=== PATIENT | female | born 1945 | race Caucasian/White ===

== ENCOUNTER 2017-03-06 08:32 | Day surgery (SDC) | payer MEDICARE, OTHER, SELFPAY ==
[2017-03-01 11:19] VITALS: BMI 36.0
[2017-03-06] VITALS (12 sets, daily range): BP systolic 117–184; BP diastolic 68–87; PULSE 67–88; RESP 11–18; TEMP 36.5–36.7; O2SAT 90–99; BMI 36.0
[2017-03-06 09:34] LABS: POC Glucose,Bedside 104 mg/dL
--- NOTE | 2017-03-06 10:47 | HMH.SCOPE ---
- Procedure: Date: 03/06/17 Patient Date of :: 1945 Procedure Performed:: Colonoscopy with cold snare polypectomy Equipment: Olympus 180 variable stiffness pediatric colonoscope Indications:: Mrs. Mccarthy is a 72-year-old female who is here for screening colonoscopy. Her last colonoscopy was more than 10 years ago at [facility]. The patient does have some occasional hemorrhoidal bleeding. She reports no abdominal pain, weight loss, change in her bowel habits or rectal bleeding. She reports no family history of colon cancer. Performing Provider:: Steve Davies MD Referring Provider:: Terrance Villanueva MD Sedation:: Fentanyl 100 mg IV/ Versed 5 mg IV Procedure:: Colonoscopy with cold snare polypectomy Findings:: Findings: On digital rectal examination there was normal rectal tone. There were no external hemorrhoids. The colonoscope was introduced through the anal canal to the rectum and advanced to the cecum. The ileocecal valve and appendiceal orifice were identified. The scope was advanced a short distance into the ileum which appeared grossly normal. The scope was then withdrawn into the colon. There were 7 colon polyps identified in the ileocecal valve ?1, descending ?3 and rectum ?3. These ranged in size from 4-7 mm and were all removed via cold snare polypectomy. The remaining cecum, ascending, transverse, descending, sigmoid and rectum were grossly normal. There were no other mucosal abnormalities identified. Upon retroflexion within the rectum there were grade 1 internal hemorrhoids. Impression: 1. Diminutive colonic polyps ?7 2. Grade 1 internal hemorrhoids Recommendations:: I will follow up the polyp pathology and recommend repeat colonoscopy again in 3 years based upon the polyp histology. I would encourage fiber supplementation on a long-term daily maintenance basis. Complications:: None Estimated blood obtained (mL): 0
== END 2017-03-06 11:45 | disposition home or self-care (01) ==
LOC: OUTP 08:37
PROVIDERS: PCP Internal Medicine; Visit Provider Internal Medicine Gastroenterology
PROC: 0DJD8ZZ Inspection of Lower Intestinal Tract, Via Natural or Artificial Opening Endoscopic (ICD-10-PCS; CPT 45378; principal; 2017-03-06 10:00)
DX: Z12.11 Encounter for screening for malignant neoplasm of colon (principal); D12.0 Benign neoplasm of cecum; D12.4 Benign neoplasm of descending colon; K63.5 Polyp of colon; Z79.899 Other long term (current) drug therapy
CPT/HCPCS: 45380; 82962; 88305; 99152; 99153

== ENCOUNTER → 2018-06-01 13:31 | Outpatient (CLI) | payer MEDICARE, OTHER, SELFPAY ==
--- NOTE | 2018-06-01 13:40 | XR_ITS ---
XR knee RT 4V HISTORY: Surgery 2014 pain past 3 months ITS.REASON: AP, Lateral, [place], [place] weightbearing ORDERING PHYSICIAN: Letha Thomas MD PATIENT AGE: 73 years Technique: Weightbearing AP, lateral and [place] views were performed as well as oblique. COMPARISON: 1 none FINDINGS: Right TKA. Components appear to be in good position. Well seated. No fracture or loosening. Normal relationships. . No significant joint effusion. Upper normal fluid suprapatella bursa on lateral view Minimal old corticated fragment is seen at themedial margin the femoral condyle,/ at medial margin of the femoral prosthesis at the likely postsurgical feature. No joint effusion. IMPRESSION Right TKA in place and appears satisfactory at the right knee
== END ==
PROVIDERS: PCP Internal Medicine; Visit Provider Orthopaedic Surgery
DX: M25.561 Pain in right knee (principal)
CPT/HCPCS: 73564

== ENCOUNTER → 2018-06-18 08:07 | Outpatient (CLI) | payer MEDICARE, OTHER, SELFPAY ==
--- NOTE | 2018-06-18 08:18 | XR_ITS ---
XR ankle wt bearing RT min 3V, XR foot wt bearing LT 3V, XR foot wt bearing RT 3V, XR ankle wt bearing LT min 3V Ordering Physician: Shaunna Singh DPM Patient Age: 73 years: Female HISTORY: ITS.REASON: painbilateral heel pain of right ankle and foot surgery years ago TECHNIQUE: Right ankle: 3 view weightbearing Right foot: 3 view weightbearing Left ankle: 3 view weightbearing Left foot: 3 view weightbearing COMPARISON : Right ankle 7 and 811 RIGHT ANKLE: 3 VIEW weightbearing ORIF of lateral malleolar fracture. Metallic plate applied laterally to the fibula and secured by multiple screws. I believe up to 9 screws here 6 small screws are seen distally at the lateral malleolus with 3 screws seen at the distal fibula shaft. Good alignment with good osseous healing at this prior fracture of the distal fibula. Satisfactory relationships at the ankle mortise. There is a corticated fracture fragment. The tip of the medial malleolus measuring at least 8 mm size, most compatible with prior injury as seen on 2010 right ankle fracture dislocation the dome of the talus and relationships ankle mortise satisfactory. ========= RIGHT FOOT 3 VIEWS weightbearing Long threaded screw and fifth metatarsal. This enters at approximately and passes the length of the fifth metatarsal. Other than healing at the previous proximal metatarsal fracture, initially seen on the August 2010 x-ray as well. The remainder of the right foot appears intact. Joint spaces well-maintained. Only suggestion of some minor early degenerative changes at first MTP joint. With slight hypertrophic changes about its margin plantar calcaneal spur measuring 9 mm length. Minimal plantar arch. IMPRESSION... RIGHT ANKLE & FOOT . 1... ORIF distal fibular fracture. Good position at the healed fracture. Ankle mortise intact. 2..... Longitudinal screw at right fifth metatarsal provides fixation to old proximal metatarsal fracture 3. generous nearly 9 mm plantar calcaneal spur 4. Early arthritic changes first MTP joint. 1 .========= LEFT ANKLE: 3 VIEW weightbearing Ankle mortise is intact. However on final review there is note mild sclerotic changes towards the anterior aspect ankle joint on lateral view reflecting mild degenerative change There is a small osseous prominence or exostosis from the lateral margin of the distal fibula at lateral malleolus. There is mild soft tissue swelling overlying this area. Ankle mortise and dome of talus intact. Medial malleolus and posterior malleolus intact. Subtalar joint unremarkable Both right left leg demonstrate stippled soft tissue calcifications in the subcutaneous region. Unlikely superficial venous calcifications or possibly from chronic superficial venous insufficiency. ======== LEFT FOOT: 3 VIEW weightbearing The left foot is intact with no fracture. Normal relationships. Joint spaces well-maintained. 9 mm length calcaneal spur.. Moderate accessory ossicle along the lateral navicular, os navicularis... Question some early degenerative changes at the cuboid-fourth metatarsal articulation as well as first tarsometatarsal metatarsal joint. IMPRESSION...: LEFT FOOT & ANKLE... 1. Left Foot--plantar calcaneal spur measuring up to 9 mm length seen at left & right foot. 2... Left foot otherwise intact with only suggestion scant degenerative changes at4th & first tarsal metatarsal joint. 3. Left Ankle-. Perhaps some mild degenerative changes anterior aspect of ankle joint on lateral view. ... Also note minor focal osseous prominence of lateral tip of lateral malleolus.
== END ==
PROVIDERS: Visit Provider Podiatrist
DX: M79.672 Pain in left foot (principal); M79.671 Pain in right foot; M25.572 Pain in left ankle and joints of left foot; M25.571 Pain in right ankle and joints of right foot
CPT/HCPCS: 73610; 73630

== ENCOUNTER 2018-07-25 12:50 | Outpatient (RCR) | payer MEDICARE, OTHER, SELFPAY | END 2019-03-21 14:03 | disposition home or self-care (01) | LOC: PT 12:50 | PROVIDERS: Visit Provider Podiatrist | DX: M72.2 Plantar fascial fibromatosis (principal) ==

== ENCOUNTER 2020-02-19 13:00 | Outpatient (RCR) | payer MEDICARE, OTHER, SELFPAY | END 2020-03-05 10:24 | disposition home or self-care (01) | LOC: PT.CARL 13:00 | PROVIDERS: Visit Provider Orthopaedic Surgery | DX: M17.12 Unilateral primary osteoarthritis, left knee (principal) | CPT/HCPCS: 97010; 97014; 97110; 97112; 97163; G0283 ==

== ENCOUNTER 2023-03-03 15:44 | Outpatient (CLI) | payer MEDICARE, OTHER, SELFPAY ==
--- NOTE | 2023-03-03 07:12 | MR_ITS ---
FINAL REPORT CLINICAL HISTORY: Atypical spells, blacking out 20ml prohance COMPARISON: None FINDINGS: Multiplanar MR imaging of the brain was performed without and with contrast. There is mild age-appropriate atrophy. Scattered foci of increased T2 signal are seen in the cerebral white matter that have a nonspecific appearance but likely represent mild chronic ischemic/gliotic changes. There is no evidence of intracranial hemorrhage or mass. No abnormal ventricular dilatation is identified. There is no evidence of shift of the midline structures. No abnormal extra-axial fluid collection is seen. No area of abnormal restricted diffusion is identified. The posterior fossa and brainstem have an unremarkable appearance. No abnormal contrast enhancement is seen. Normal major vessel vascular flow voids are seen. IMPRESSION: Mild atrophy and chronic ischemic/gliotic changes. No acute intracranial abnormality. Reviewed, Interpreted and Dictated by Jerome Salomon III, MD Transcribed by Rasheeda Staley Authenticated and [facility]
[2023-03-03 08:20] LABS: Blood Urea Nitrogen 12 mg/dl (7-17); Estimated Glomerular Filt Rate 69 ml/min (>60); GFR (African American) 84 ML/MIN (>60)
[2023-03-03 08:49] LABS: Thyroid Stimulating Hormone 3.37 uIU/mL (0.465-4.68)
[2023-03-03 09:08] LABS: Vitamin B12 477 pg/mL (239-931)
[2023-03-03 10:22] LABS: Erythrocyte Sedimentation Rate 33 mm/hr (0-30)
[2023-03-03] MEDS: SODIUM CHLORIDE 0.9% 10ML SYR (RAD ONLY) 10 ML IV (11:30)
[2023-03-03] MEDS: GADOTERIDOL INJ 17ML SYRINGE 20 ML IV (11:30)
== END 2023-03-03 23:59 ==
LOC: RAD 15:45
PROVIDERS: PCP Family Medicine; Visit Provider Specialist
DX: C50.919 Malignant neoplasm of unspecified site of unspecified female breast (principal); R40.4 Transient alteration of awareness; R55 Syncope and collapse; I49.9 Cardiac arrhythmia, unspecified; G31.84 Mild cognitive impairment of uncertain or unknown etiology
CPT/HCPCS: 36415; 70553; 82565; 82607; 82746; 84443; 84520; 85651; 95819; A9576

== ENCOUNTER 2024-06-26 09:54 | Outpatient (RCR) | payer MEDICARE, OTHER, SELFPAY | END 2024-06-26 23:59 | disposition home or self-care (01) | LOC: PT 09:54 | PROVIDERS: PCP Family Medicine; Visit Provider Otolaryngology | DX: R26.89 Other abnormalities of gait and mobility (principal) | CPT/HCPCS: 97163 ==

== ENCOUNTER 2024-08-19 13:00 | Outpatient (RCR) | payer MEDICARE, OTHER, SELFPAY | END 2024-08-20 08:48 | disposition home or self-care (01) | LOC: PT.CARL 13:00 | PROVIDERS: PCP Family Medicine; Visit Provider Otolaryngology | DX: R26.89 Other abnormalities of gait and mobility (principal) | CPT/HCPCS: 97110; 97112; 97530 ==

== ENCOUNTER 2024-08-29 08:28 | Outpatient (CLI) | payer MEDICARE, OTHER, SELFPAY ==
--- OUTSIDE RECORDS SUMMARY | 2024-06-01 17:30 | XMS_ITS ---
Author Organization [facility] Address [address] [place] [address] Care Team Providers Care Customer Acquisition Manager Name Role Phone Theo Sutherland Primary Care Provider [phone] Migration, Provider Unavailable Unavailable Allergies Allergen (clinical drug ingredient) Drug/Non Drug Allergy documented on EMR Reaction Allergy Type Onset Date Status mafenide Sulfamylon hives Drug Allergy Active Penicillin hives Drug Allergy Active [facility] Conversion Encounter Medications Medication SIG (Take, Route, Frequency, Duration) Notes Start Date End Date Status Doxycycline Monohydrate 100 MG 1 tab(s) orally 2 times a day; Duration: 10 day(s) 05/31/2021 Active Cetirizine HCl 10 MG 1 tab(s) orally onc e a day; Duration: 30 day(s) 05/27/2021 Active Fluticasone Propionate 50 MCG/ACT 1 spray(s) in each nostril once a day; Duration: 30 day(s) 05/31/2021 Active Gabapentin 300 MG 1 cap(s) orally four times a day; Duration: 90 days Active Temazepam 15 MG 1 cap(s) orally once a day (at bedtime); Duration: 90 days Active Anusol-HC 2.5 % 1 chris rectally 2 govind es a day; Duration: 14 day(s) 11/16/2020 Active Lisinopril 10 MG 1 tab(s) orally once a day Active Simvastatin 10 MG 1 tab(s) orally once a day (at bedtime); Duration: 90 days Active Encounters Encounter Location Date Provider Diagnosis [facility] [address] [place] [address] 06/01/2024 Provider Migration Acute non-recurrent pansinusitis J01.40 Assessments Encounter Date Diagnosis (ICD Code) Assessment Notes Treatment Notes Treatment Clinical Notes Section Notes 06/01/2024 Acute non-recurrent pansinusitis (ICD-10 - J01.40) Plan Of Treatment Medication Medication Name Sig Start Date Stop Date Notes Doxycycline Monohydrate 100 MG 1 tab(s) orally 2 times a day; Duration: 10 day(s) 05/31/2021 Fluticasone Propionate 50 MCG/ACT 1 spray(s) in each nostril once a day; Duration: 30 day(s) 05/31/2021 Progress Notes * Becky MCCARTHY ADOB: [birth year] (79 yo F)Acc No.[id number]:06/01/2024 Patient: Becky GATICA Provider: Mainor Hernadez :1945 A ge:79 Y S ex:Female Date:06/01/2024 Address:[address] [place] [address], [place], [phone] Pcp:Theo Sutherland Subjective: * Chief Complaints: * [facility] . [facility]. * Medical History: * Medications: T aking Temazepam 15 MG Capsule 1 cap(s) orally once a day (at bedtime) , Taking Gabapentin 300 MG Capsule 1 cap(s) orally four times a day , Taking Simvastatin 10 MG Tablet 1 tab(s) orally once a day (at bedtime) , Taking Lisinopril 10 MG Tablet 1 tab(s) orally once a day , Taking Anusol-HC 2.5 % Cream 1 chris rectally 2 times a day , Taking Cetirizine HCl 10 MG Tablet 1 tab(s) orally once a day * Allergies: P enicillin: hives, Sulfamylon: hives. Objective: * Vitals: Assessment: * Assessment: 1. A cute non-recurrent pansinusitis - J01.40 (Primary) Plan: * Treatment: * * Electronic signature of Emily tolentino Migration on 09/02/2024 at 10:42 AM EDT Sign off status: Pending * Provider: Mainor mayen Migration Date: 0 06/01/2024 Generated for Nellie kuo/Lj/Artiitting on: 0 09/02/2024 10:42 AM EDT
[2024-08-29 21:22] LABS: Hematocrit 44.4 % (37.0-47.0); Hemoglobin 14.1 g/dL (12.2-16.2); Immature Granulocytes % 0.4 %; Mean Corpuscular HGB Conc 31.8 g/dL (31.8-35.4); Mean Corpuscular Hemoglobin 29.3 pg (27.0-31.2); Mean Corpuscular Volume 92.1 fl (81-99); Nucleated Red Blood Cells % 0 %; Platelet Count 230 K/mm3 (142-424); Red Blood Count 4.82 M/mm3 (4.20-5.40); Red Cell Distribution Width-SD 48.7 fL; White Blood Count 6.9 K/mm3 (4.8-10.8)
[2024-08-29 21:50] LABS: Alanine Aminotransferase 27 U/L (12-78); Albumin Level 4.1 g/dl (3.5-5.0); Albumin/Globulin Ratio 1.5 (1.1-1.8); Alkaline Phosphatase 96 U/L (38-126); Anion Gap 12.5 mEq/L (5-15); Aspartate Amino Transferase 28 U/L (14-36); Bilirubin,Total 0.6 mg/dl (0.2-1.3); Blood Urea Nitrogen 13 mg/dl (7-17); Calcium 10.0 mg/dl (8.4-10.2); Carbon Dioxide 29 mmol/L (22.0-30.0); Chloride 101 mmol/L (98-107); Cholesterol 206 mg/dl (140-200); Creatinine,Serum 0.80 mg/dl (0.52-1.04); Estimated Glomerular Filt Rate 69 ml/min (>60); GFR (African American) 84 ML/MIN (>60); Globulin 2.8 g/dL (1.3-3.2); Glucose 75 mg/dl (74-100); HDL Cholesterol 55 mg/dl (40-60); Potassium 4.5 mmoL/L (3.5-5.1); Sodium 138 mmol/L (136-145); Total Protein,Serum 6.9 g/dl (6.3-8.2); Triglycerides 105 mg/dl (30-150)
[2024-08-29 22:23] LABS: Thyroid Stimulating Hormone 1.34 uIU/mL (0.465-4.68)
[2024-08-29 22:24] LABS: Hemoglobin A1C 7.1 % (4.0-6.0)
[2024-08-29 22:37] LABS: Hepatitis C Ab Qual. W/ RFX RETEST? (Negative)
[2024-08-29 23:42] LABS: HCV Ab Retest NEGATIVE (Negative)
[2024-09-01 08:10] LABS: Hepatitis B Surface Antigen Negative (Negative)
--- OUTSIDE RECORDS SUMMARY | 2024-09-02 10:32 | XMS_ITS | Continuity of Care Document ---
Author Name [facility] Organization [facility] Care Team Providers Care Coffee Maker Servicer Name Role Phone [facility] Unavailable Unavailable Social History Combined list of available smoking, tobacco, and other social history from Department of Defense and Veterans Affairs facilities. Social History Type Response Date Comment Sourc e This section is an empty social history section. [facility]
--- OUTSIDE RECORDS SUMMARY | 2024-09-02 10:43 | XMS_ITS | Referral Summary ---
Author Organization [employer] ([place], [place], [place], [place]) Address [address] [place] [address] Care Team Providers Care Cut [employer] Name Role Phone Unavailable Primary Care Provider Unavailabl e Social History Tobacco Use Types Packs/Day Years Used Date Smoking Tobacco: Never Assessed Comments Unknown Sex and Gender Information Value Date Recorded Sex Assigned at Not on file Legal Sex Female 3:48 PM CDT Gender Identity Not on file Sexual Orientation Not on file Plan of Treatment Not on file
--- OUTSIDE RECORDS SUMMARY | 2024-09-02 10:43 | XMS_ITS | Clinical Summary ---
Author Organization [facility] Address [address] [place] [address] Care Team Providers Care Tumbler Drier Operator Name Role Phone System, Provider Not In MD Primary Care Provider Unavailable Social History Tobacco Use Types Packs/Day Years Used Date Smoking Tobacco: Never Assessed Comments Unknown Sex and Gender Information Value Date Recorded Sex Assigned at Not on file Legal Sex Female 8:40 PM EDT Gender Identity Not on file Sexual Orientation Not on file Plan of Treatment Health Maintenance Due Date Last Done Comments [facility]-Bone Density Scan 1945 [facility]-Depression Screening 1945 [facility]-Medicare Annual Wellness (AWV) 1945 [facility]-Infant/Child/Adol SDOH Screenings 1945 [facility]- SDOH Screenings 01/23/1962 [facility]-Adult SDOH Screenings 01/23/1962 [facility]-Pneumococcal Vaccine: 50+ Years (1 of 1 - PCV) 01/23/1994 [facility]-Zoster Vaccines (1 of 2) 01/23/1994 [facility]-DTaP,Tdap,and Td Vaccines (2 - Td or Tdap) 12/08/2018 12/08/2008 [facility]-RSV Vaccine: 60+ Years or (1 - 1-dose 75+ series) 01/23/2019 [id number] Vaccine ( season) 2023 05/14/2021, 05/21/2020, 04/23/2020 [facility]-Influenza Vaccine (#1) 2024 11/16/2021, [facility]-Diabetes: Hemoglobin A1C 02/18/2025 02/19/2024, 11/01/2023, 05/05/2023, Additional history exists HPV Vaccines Aged Out No longer eligi ble based on patient's age to complete this topic [facility]-HIB Vaccines Aged Out No longer e ligible based on patient's age to complete this topic [facility]-Hepatitis A Vaccines Aged Out No longer eligible based on patient's age to complete this topic [facility]-IPV Vaccines Aged Out No longer e ligible based on patient's age to complete this topic [facility]-Rotavirus Vaccines Aged Out No lo nger eligible based on patient's age to complete this topic Procedures Procedure Name Priority Date/Time Associated Diagnosis Comments HEMOGLOBIN A1C Routine 02/19/2024 4:16 PM EST from Last 3 Months or Most Recently Relevant to Health Maintenance Results * (ABNORMAL) Hemoglobin A1c (02/19/2024 4:16 PM EST) External Glycosylated Hemoglobin (Hgb A1C) 6.1(H) 0.0 - 5.6 % 02/19/2024 6:[address] [facility] External Estimated Average Glucose 128 mg/dL (calc) 02/19/2024 6:[address] [facility] Comment: A1c values between 5.7% to 6.4% indicate prediabetes. Results 6.5% or greater is diagnostic of diabetes. [place] [employer] (diabetes.org) 02/19/2024 4:16 PM EST 02/19/2024 6:32 PM EST Garrison Villanueva MD LAB BLOOD ORDERABLES Final Re sult [facility] [address] [place] [address], from Last 3 Months or Most Recently Relevant to Health Maintenance [place] [address] [place] [address] MEDICARE Care Teams Tumbler Drier Operator Relationship Specialty Start Date End Date System, Provider Not In, [place] [address] PCP - General Family Medicine 12/09/21
--- OUTSIDE RECORDS SUMMARY | 2024-09-02 10:43 | XMS_ITS | Data Portability ---
Author Organization [facility] ADMIN Address [address] [place] [address] Care Team Providers Care Electrical Supervisor Name Role Phone MIKEY VILLANUEVA Primary Care Provider Assessment No assessment recorded. Plan of Treatment Reminders Order Date Submit Date Provider Last Modified By Organization Details Last Modified Time Details Appointments None recorded. Lab None recorded. Referral physical therapist referral 2024 025 [facility] sle, [address], [place], [address], 5 10:05:46 Procedures None recorded. Surgeries None recorded. Imaging pharmacolo gic nuclear stress test [address], [address], [place], [address], 4 15:50:05 US, echocardio gram, transthora cic, complete, w/ color flow [address], [address], [place], [address], 4 15:43:31 Medication Orders ipratropiu m bromide 42 mcg (0.06 %) nasal spray 2024 025 [employer], [address] [place] [address], [place], [place], [id number], 5 10:26:13 Patient TargetsNo targets recorded. Patient InstructionsNo instructions recorded. Reason for Referral Physical Therapist Referral for Impairment of balance Referring Physician: Letha Guallpa, Otolaryngology, Encounter Date: 06/05/2024 Results Created Date Observation Date Name Description Value Unit Range Abnormal Flag Note LastModifiedBy Organization Detail LastModifiedTime 08/10/19 24 08/09/2023 US, echoc ardio gram, trans thora cic, compl ete, w/ color flow [facility] [address] [place] [address] Phone: Fax: Name: BECKY EASLEY Exam Date: 024 : 1944 Age 78 years Gender : F Access ion: [id number] Physic israel: JOSE DILLARD ty: [place] Facili ty HSV: Outpat ient Exam: ECHO W SPEC COLOR FLOW Reason for Study: dyspne a SUMMAR Y Normal LV size with normal functi on. The ejecti on fracti on is 65-70% . Normal diasto lic functi on. There is mildao rtic regurg itatio n. INTERP RETATI ON DETAIL Fair qualit y study. Left ventri haritha: The left ventri haritha is normal in size with normal systol ic functi on. The ejecti on fracti on is 65-70% . There is normal LV wall thickn ess. The left ventri cular wall motion is normal . Mitral fillin g indica adrienne Normal diasto lic functi on. Left atrium : The left atrium is normal . LA volume : 28.9mL , LA volume index: 13.0mL /mA. Right ventri haritha: The right ventri haritha is normal in size with normal functi on. Right atrium : The right atrium is normal . Mitral valve: There is severe mitral annula r calcif icatio n. There is no mitral stenos is. There is trace mitral regurg itatio n. Aortic valve: The aortic valve is modera tely thicke maureen. There is mild aortic stenos is with a valve area of 1.50 naval designer? grad=1 2mmHg, Mean grad=7 mmHg, LVOT anshu=1. 90cm, LVOT TVI=23 .3cm, Ao TVI=44 .1cm). The dimens ionles s index is 0.53. AV peak veloci uf=721 cm/sec . There is mild aortic regurg itatio n. (AR Decel= 1.460 m/secA ? Tricus pid valve: The tricus pid valve is normal . There is no tricus pid regurg itatio n, so PA pressu re cannot be estima hellen. Pulmon ic valve: There is physio logic pulmon ic regurg itatio n. Perica rdium: The perica rdium is normal . Intera trial septum : The intera trial septum is normal . Aorta: The aortic root is normal . Aortic dimens ion - Ascend ing=2. 90cm. Vena Cava: The inferi or vena cava is normal . MEASUR EMENTS Left Ventri haritha IVSd: 0.76cm (0.6-1 .1cm) PWd: 0.80cm (0.6-1 .1cm) Mass Nancy: 126g LVMI: 57g/mA ? LVIDd: 4.87cm (3.7-5 .6 cm) LVIDdI : 2.19cm /m2 LVIDs: 2.83cm (1.8-4 .2 cm) LVIDsI : 1.27cm /m2 RWT: 0.33 (<0.42 ) E to A: 0.92 (0.6-2 ) E-e prime med: 15.71 E-e prime lat: 18.33 Decel: 198.00 ms (168-2 32ms) Right Ventri haritha Mid RV Anshu: 3.0cm (2.7-3 .3cm) Max Valve Veloci ties Legall y authen ticate d by NISHANT Gomes 08-09 12:09: 26 AV peak ilsa: 172cm/ sec LVOT: 91.70c m/sec [employer] LA AP: 3.9cm LA vol: 28.9mL EFRAIN: 13.0mL /mA? Jose Dillard MD Electr onical ly signed by Dr. Jose Dillard on 2023 at 12:09 PM Dictat ed By: JOSE DILLARD Transc ribed By: Transc ribed On: 12:09 PM Electr onical ly signed by: JOSE DILLARD Thank you for referr BECKY Saldana to [facility] al. Legall y authen ticate d by NISHANT FU Mireya 0 08-09 12:09: 26 CC'ed Logic: Orderi ng Provid er: NISHANT FU Attend ing Provid er: NISHANT FU Admitt ing Provid er: NISHANT FU [id number] [facility] - Physical Therapy [address] [facility], [place], [address], 09/25/2023 15:43:31 08/10/19 24 08/09/2023 pharm acolo gic nucle ar stres s test Nuclea r Stress Test BECKY EASLEY [facility] 8 2 EXAM: HEART SPECT MULTI REST/S TRESS [id number] DATE OF EXAM: 2023 06:50: 17 NUCLEA R STRESS TEST PROVID ER: Jose Dillard MD, FACC REQUES TING PHYSIC [place]RA[place]: Jose Dillard MD, FACC. INDICA TION: Dyspne a. DESCRI PTION OF PROCED URE: After inform ed consen t, the patien t underw ent pharma cologi anahy stress test per Lexisc an protoc ol. Restin g heart rate of 62 malachi to a maximu m of 82 beats per minute . Restin g blood pressu re of 114/68 , malachi to a maximu m of 134/70 mmHg. Stress test was stoppe d as per protoc ol. No signif icant sympto ms of Lexisc an infusi on. At rest, 10.89 mCi of techne tium tetrof shay was infuse d. Rest SPECT images were obtain ed. At peak stress , 33.5 mCi of techne tium tetrof shay was infuse d. Stress SPECT images were obtain ed. Gated SPECT images were obtain ed. FINDIN GS: Baseli ne EKG showed normal sinus rhythm with no arrhyt hmia or ischem ic EKG change s. Calcul ated EF of 68%. TID ratio of 0.98. Review of the axial images showed homoge neous uptake of tracer with no eviden ce of myocar dial ischem ia or scar noted. FINAL IMPRES LEATHA: No eviden ce of myocar dial ischem ia. Normal calcul ated ejecti on fracti on of 68%. DICTAT ED BY: Jose Dillard MD, FACC JT/CAREN L DD: 2023 16:59: 24 DT: 2023 19:32: 49 /[id number] Electr onical ly Signed By: NISHANT Gomes 08-09 12:22: 15 CC'ed Logic: Orderi ng Provid er: NISHANT FU Attend ing Provid er: NISHANT FU Admitt ing Provid er: NISHANT FU [email or web address] [facility] Therapy [address] [facility], [place], [address], 08/18/2023 13:47:35 05/16/19 25 05/15/2024 audio gram No observ ation record ed. Not Available 2024 14:06:41 Result Notes Documentation Provider Name and Address Organization Details Recorded Time Pharmacologic Nuclear Stress Test : Nuclear Stress Test BECKY MCCARTHY [facility] 2 EXAM: HEART SPECT MULTI REST/STRESS [id number] DATE OF EXAM: 08/09/2023 06:50:17 NUCLEAR STRESS TEST PROVIDER: Jose Dillard MD, [facility] REQUESTING PHYSICIAN: Jose Dillard MD, FACC. INDICATION: Dyspnea. DESCRIPTION OF PROCEDURE: After informed consent, the patient underwent pharmacological stress test per Lexiscan protocol. Resting heart rate of 62 malachi to a maximum of 82 beats per minute. Resting blood pressure of 114/68, malachi to a maximum of 134/70 mmHg. Stress test was stopped as per protocol. No significant symptoms of Lexiscan infusion. At rest, 10.89 mCi of technetium tetrofosmin was infused. Rest SPECT images were obtained. At peak stress, 33.5 mCi of technetium tetrofosmin was infused. Stress SPECT images were obtained. Gated SPECT images were obtained. FINDINGS: Baseline EKG showed normal sinus rhythm with no arrhythmia or ischemic EKG changes. Calculated EF of 68%. TID ratio of 0.98. Review of the axial images showed homogeneous uptake of tracer with no evidence of myocardial ischemia or scar noted. FINAL IMPRESSION: No evidence of myocardial ischemia. Normal calculated ejection fraction of 68%. DICTATED BY: Jose Dillard MD, [facility] JT/MODL /[id number] Electronically Signed By: NISHANT Gomes 2023-08-10 12:22:15 CC'ed Logic: Ordering Provider: NISHANT FU Attending Provider: NISHANT FU Admitting Provider: NISHANT Warner null, [place] [facility] [place] & [place] 08/18/2023 13:47:35 Problems Name Problem SNOMED Code Status Onset Date Resolution Date Notes Provider Name and Address Organization Details Recorded Time Dizziness and giddiness 141690874 Active 2024 MIAH ESTRADA, AUD [address] [facility], [place], [address] , [place] [facility] [place] 5 14:05:28 Impairment of balance 768912928 Active Norman Everidge null, [place] [facility] [place] 10:37:55 Bilateral carpal tunnel syndrome 9356390146657 9101 Active Norman Everidge null, [place] [facility] 10:37:55 Patient encounter status 042900091 Active Norman Everidge [place] [facility] [place] 10:37:55 Paresthesi a 97693747 Active Norman Everidge [place] [facility] [place] 10:37:55 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 126165973 Active Norman Everidge null[place] [facility] [place] 10:37:55 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 825218808 Active Norman Everidge null[place] [facility] [place] 10:37:55 Idiopathic peripheral neuropathy 65253187 Active Norman Everidge null[place] [facility] [place] 2 10:37:56 Bilateral subjective tinnitus of ears 6927905931115 104 Active Norman Olivia null, [place] [facility] [place] 2 10:37:56 History of malignant neoplasm of breast 187722543 Active Norman Olivia null, [place] [facility] [place] 2 10:37:56 CT of chest abnormal 4476517980467 9102 Active Norman Olivia null, [place] [facility] [place] 2 10:37:56 Sensorineu ral hearing loss of bilateral ears 492975660 Active Norman Olivia null, [place] [facility] [place] 2 10:37:56 Coronary atheroscle rosis 001658696 Active 2022 Jose Dillard MD [address] [facility] [address] , [facility] - [facility] & [place] 3 14:02:40 Hyperlipid emia 37433447 Active 2022 Jose Dillard MD [address] [facility] [address] , [place] - [facility] & [place] 3 14:02:48 Essential hypertensi on 73884498 Active 2022 Jose Dillard MD [address] [place], [address] , [facility] - [facility] & [place] 3 14:02:51 Aortic valve stenosis 75854109 Active 2022 Jose Dillard MD [address] [place], [address] , [place] [facility] & [place] 3 14:05:36 Obstructiv e sleep apnea syndrome 26332506 Active 2022 Jose Dillard MD [address] [facility] [address] , [place] [facility] & [place] 3 14:11:56 Right 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 33147517 Active 2022 Jose Dillard MD [address] [facility] [address] , [place] [facility] [place] 3 14:14:39 Sensorineu ral hearing loss 46361477 Active 2022 AUSTEN RDZ [address] [facility], [place], [address] , [place] [facility] [place] 3 15:26:50 Syncope 058898424 Active 2022 Jose Dillard MD [address] [facility], [place], [address] , [place] [facility] [place] 3 14:08:05 Chest pain 63831994 Active 2023 Jose Dillard MD [address] [facility], [place], [address] , [place] [facility] [place] 4 11:35:58 Dyspnea 771203656 Active 2023 Jose Dillard MD [address] [facility], [place], [address] , [place] [facility] [place] 4 11:36:25 Problem Notes None recorded. Procedures Surgical History Date Name Laterality Status Provider Name and Address Organization Details Recorded Time 06/06/19 25 Cerumen removal with microscope completed Letha Guallpa MD [address], [place], [address], [place] [facility] [place] 06/05/2024 11:36:41 03/28/19 23 Date of Last Colonoscopy completed Abi Eric [place] [facility] [place] 09/27/2022 13:11:20 02/27/19 21 Joint Replacement completed Abi Eric [place] [facility] [place] 09/27/2022 13:11:52 02/27/19 16 Breast Surgery completed Abi Eric [place] [facility] [place] 09/27/2022 13:11:52 02/27/19 13 Joint Replacement completed Abi Eric [place] [facility] [place] 09/27/2022 13:11:52 02/27/19 01 Other completed Abi Eric [place] [facility] [place] 09/27/2022 13:11:52 02/27/18 99 Breast Surgery completed Abi BRADY [facility] & [place] 09/27/2022 13:11:52 Imaging Results None recorded. Procedure Notes None recorded. Medical Equipment None Reported. Allergies Allergen ID Allergen Name Allergen Category Reaction Reaction Severity Criticality Documentation Date Start Date Code Code System Note Provider Name and Address Organization Details Recorded Time 67537 Product containin g penicilli n (product) medicatio n Not available Not available Not available 05/09/2022 91990 8001 SNOMED Sukh Sharp-Bec sandy [facility] [place] 3 10:48:41 39662 Substance with sulfonami de structure and antibacte rial mechanism of action (substanc e) medicatio n hives wheezing severe severe Not available 05/09/2022 09167 8003 SNOMED Sukh Sharp-Bec sandy TOMMIE hightower [facility] & [place] 3 10:48:48 87247 penicilli n G benzathin e medicatio n hives wheezing severe severe Not available 09/27/2022 7982 RxNorm TOMMIE Villanueva [facility] & [place] 3 13:11:07 Medications Name Sig Start Date Stop Date Status Note LastModified by Organization Details LastModified Time doxycycline hyclate 100 mg capsule TAKE 1 CAPSULE 2 TIMES EACH DAY FOR 10 DAYS 10/10 completed Not Available Not Available Not Available donepezil 5 mg tablet TAKE 1 TABLET 1 TIME EACH DAY IN THE MORNING active Not Available Not Available No t Available lisinopril 20 mg tablet Take 1 {tablet} by oral route. 05/09 completed Not Available Not Available Not Available simvastatin 10 mg tablet TAKE 1 TABLET 1 TIME EACH DAY active Not Available Not Available No t Available [facility] Vitamin E 1000 unit capsule Take 1 capsule every day by oral route. active Not Available Not Available No t Available nateglinide 60 mg tablet TAKE 1 TABLET 2 TIMES EACH DAY WITH MEALS active Not Available Not Available No t Available potassium 99 mg tablet Take by oral route. active Not Available Not Available No t Available temazepam 30 mg capsule TAKE 1 CAPSULE 1 TIME EACH DAY AT BEDTIME FOR SLEEP active Not Available Not Available No t Available doxycycline monohydrate 100 mg capsule TAKE 1 CAPSULE 2 TIMES EACH DAY FOR 10 DAYS 06/05 completed Not Available Not Available Not Available neomycin-po lymyxin-dex ameth 3.5 mg/mL-10,00 0 unit/mL-0.1 % eye drops PLACE 1 DROP INTO BOTH EYES EVERY 4 HOURS 06/05 completed Not Available Not Available Not Available lisinopril 10 mg tablet TAKE 1 TABLET 1 TIME EACH DAY 05/28 completed Not Available Not Available Not Available docusate sodium 100 mg capsule Take 1 capsule every day by oral route. active Not Available Not Available No t Available gabapentin 300 mg capsule TAKE 1 CAPSULE 3 TIMES EACH DAY active Not Available Not Available No t Available montelukast 10 mg tablet TAKE 1 TABLET 1 TIME EACH DAY IN THE MORNING FOR ALLERGIES active Not Available Not Available No t Available codeine 10 mg-guaifene sin 100 mg/5 mL oral liquid TAKE 5 ML (1 TEASPOONF UL) EVERY 6 HOURS NEEDED FOR COUGH 02/10 completed Not Available Not Available Not Available furosemide 20 mg tablet TAKE 1 TABLET EVERY OTHER DAY 06/05 completed Not Available Not Available Not Available metoprolol succinate ER 25 mg tablet,exte nded release 24 hr TAKE 1 TABLET 1 TIME EACH DAY 09/27 completed Not Available Not Available Not Available levofloxaci n 500 mg tablet TAKE 1 TABLET 1 TIME EACH DAY FOR 7 DAYS 07/18 completed Not Available Not Available Not Available ipratropium bromide 42 mcg (0.06 %) nasal spray SPRAY INTO BOTH NOSTRILS 2 TIMES 3 TIMES EACH DAY active Not Available Not Available No t Available fluticasone propionate 50 mcg/actuati on nasal spray,suspe nsion SPRAY 1 TIME IN EACH NOSTRIL 1 TIME EACH DAY 05/09 completed Not Available Not Available Not Available lisinopril 2.5 mg tablet TAKE 1 TABLET 1 TIME EACH DAY active Not Available Not Available No t Available ipratropium bromide 21 mcg (0.03 %) nasal spray SPRAY 2 TIMES IN EACH NOSTRIL 2 TIMES EACH DAY 06/05 completed Not Available Not Available Not Available vitamin B complex capsule Take by oral route. active Not Available Not Available No t Available chlorhexidi ne gluconate 0.12 % mouthwash SWISH AND SPIT 15 ML 2 TIMES EACH DAY, IN THE MORNING AND IN THE EVENING AFTER BRUSHING 06/05 completed Not Available Not Available Not Available garlic active Not Available Not Availa ble Not Available Stool Softener active Not Available Not Available Not Available Calcium/Mag nesium/Zinc Formula active Not Available Not Available Not Available multivitami n active Not Available Not Available Not Available apple cider vinegar active Not Available Not Available Not Available Elderberry 06/05 completed Not Available Not Available Not Available alpha lipoic acid active Not Available Not Available Not Available alpha lipoic acid 300 mg capsule Take by oral route. active Not Available Not Available No t Available Triple [place] 3-6-9 active Not Available Not Available Not Available Gavilyte-C 240 gram-22.72 gram-6.72 gram-5.84 gram oral solution MIX AND TAKE ACCORDING TO PACKAGE AND PRESCRIBE R INSTRUCTI ONS. DRINK 8 OUNCES (1 CUP) EVERY 15 MINUTES DIRECTED BY PRESCRIBE R INSTRUCTI ONS. 05/09 completed Not Available Not Available Not Available PreserVisio n AREDS-2 active Not Available Not Available No t Available Procto-Med HC 2.5 % topical cream perineal applicator APPLY A THIN FILM TO THE AFFECTED AREA OF SKIN 1 TO 2 TIMES A DAY NEEDED FOR HEMORRHOI DS 06/05 completed Not Available Not Available Not Available turmeric active Not Available Not Avai lable Not Available BinaxNOW COVID-19 Ag Self Test kit TEST DIRECTED TODAY 05/09 completed Not Available Not Available Not Available Paxlovid 300 mg (150 mg x 2)-100 mg tablets in a dose pack TK 2 NIRMATREL VIR TS AND 1 RITONAVIR T TOGETHER PO BID FOR 5 DAYS BID FOR 5 DAYS 05/09 completed Not Available Not Available Not Available Ozempic 0.25 mg or 0.5 mg (2 mg/3 mL) subcutaneou s pen injector INJECT 0.25MG ONCE A WEEK INTO THE SKIN 07/18 completed Not Available Not Available Not Available Vitals Date Recorded Body height Body mass index (BMI) Body weight Oxygen saturation Oxygen saturation in Arterial blood by Pulse oximetry Heart rate Systolic And Diastolic Provider Name and Address Organization Details Last Updated DateTime 4 170.18 cm 36.7 kg/m2 028703. 33 g 98 % 98 % 73 /min 122/74 mm[Hg] Abi Barbour [facility] & [place] 4 13:10:08 Date Recorded Body height Body mass index (BMI) Body weight Body temperature Provider Name and Address Organization Details Last Updated DateTime 06/05/2024 170.18 cm 36.9 kg/m2 265042.08 g 97 [degF] Eusebia REILLY [facility] & [place] 06/05/2024 11:05:19 Date Recorded Body height Body mass index (BMI) Body weight Oxygen saturation Oxygen saturation in Arterial blood by Pulse oximetry Heart rate Systolic And Diastolic Provider Name and Address Organization Details Last Updated DateTime 4 170.18 cm 37 kg/m2 608465. 8 g 94 % 94 % 70 /min 132/68 mm[Hg] Jazzmine REILLY [facility] & [place] 4 11:17:20 Date Recorded Body height Body mass index (BMI) Body weight Oxygen saturation Oxygen saturation in Arterial blood by Pulse oximetry Heart rate Systolic And Diastolic Provider Name and Address Organization Details Last Updated DateTime 4 170.18 cm 36.8 kg/m2 682762. 21 g 97 % 97 % 83 /min 118/70 mm[Hg] Jazzmine REILLY [facility] & [place] 4 10:33:51 Social History Question Answer Notes LastModified by [employer] Details LastModified Time Tobacco Smoking Status Never Smoker Abi Reyes [facility] TOMMIE [facility] & [place] 09/27/2022 13:11:47 Do You Have An Advance Directive? No Information not available 09/27/2022 Are You Blind Or Do You Have Difficulty Seeing? No Information not available 09/27/2022 What Is Your Level Of Caffeine Consumption? Moderate [email or web address] Information not available 07/19/2023 What Was The Date Of Your Most Recent Tobacco Screening? 05/06/2022 Information not available 09/27/2022 Are You Passively Exposed To Smoke? No Information not available 09/27/2022 Sex: Unknown Functional Status Question Answer Note LastModified by Organizat ion Details LastModified Time Do you use any illicit or recreational drugs? No Information not available 09/27/2022 What is your level of alcohol consumption? None [email or web address] Information not available 10/11/2023 Do you or have you ever used smokeless tobacco? Never used smokeless tobacco Information not available 09/27/2022 What is your exercise level? Occasional Information not available 09/27/2022 Mental Status Question Answer Note LastModified by Organization D etails LastModified Time Do you feel stressed (tense, restless, nervous, or anxious, or unable to sleep at night)? [id number] Information not available 09/27/2022 Family History Nothing Reported Notes:Mother: , diag nosed with NKFH. Father: , diagnosed with Hypertension, CAD. Brother #1: alive, diagnosed with NKFH. Sister #1: alive, diagnosed with NKFH. Sister #2: alive, diagnosed with NKFH. 1 brother(s) , 2 sister(s) . . Medical History Condition Response Allergies/Hayfever Y Ear or Hearing Problems Y Obstructive Sleep Apnea Y Obesity Y Vision or Eye Problems Y High Cholesterol Y Hypertension Y Gynecological History Statement/Question Response Age at Menarche 48 Date of Last Colonoscopy 03/28/2022 Obstetrics History GPAL:G 0 P 0 0 0 0 Past Encounters Encounter ID Performer Location Encounter Start Date Encounter Closed Date Diagnosis/Indication Diagnosis SNOMED-CT Code Diagnosis ICD10 Code Diagnosis Note [id number] Baltazar Stewart MD [facility] [address] [facility] [address] [place] [address] 05/09/2022 10:34:28 05/09/2022 11:02:49 History of malignant neoplasm of breast 545986906 Z85.3 [id number] Jose Dillard MD [facility] [address] [facility] [address] [place] [address] 09/27/2022 13:16:53 09/27/2022 14:15:13 Coronary atherosclerosis 060609239 I25.10 mild CAD. Recent stress test which was low risk . Denies any anginal symptoms. Continue medical management . Hyperlipidemia 54092178 E78.5 Continue statin Low fat/carboh ydrate diet Increase exercise Lose weight Essential hypertension 83525480 I10 Continue current medication . Keep log Low-salt diet < 2 gm Na/day, Regular exercise Weight loss Aortic valve stenosis 60 816414 I35.0 mild. Clinically monitor Obstructiv e sleep apnea syndrome 28413554 G47.33 on bipap Right bund le branch block AND left anterior fascicular block 06077500 I44.4 [id number] AUSTEN RDZ [facility] [id number] [facility], [place] [address] 01/10/2023 15:07:35 01/10/2023 15:26:20 Sensorineural hearing loss 55625827 H90.3 [id number] Jose Dillard MD [address] [place] [address] 02/10/2023 13:10:25 02/10/2023 14:13:58 Coronary atherosclerosis 828088193 I25.10 mild CAD. Recent stress test which was low risk . Denies any anginal symptoms. Continue medical management . Hyperlipidemia 28689298 E78.5 Continue statin Low fat/carboh ydrate diet Increase exercise Lose weight Essential hypertension 66663281 I10 Continue current medication .Keep logLow-gadiel t diet < 2 gm Na/day,Reg ular exerciseWe ight loss Aortic valve stenosis 60 662968 I35.0 mild. Clinically monitor Obstructiv e sleep apnea syndrome 07498693 G47.33 on bipap Right bund le branch block AND left anterior fascicular block 61693553 I44.4 Syncope 832010417 R55 She does have evidence of conduction system disease on EKG so can not completely rule out high-degre e blocks contributi ng to symptoms. She is had multiple monitors in the past which have been unremarkab le. Hence a loop recorder may be helpful.wi ll refer for loop recorder [id number] Jose Dillard MD [facility] [address] [facility] [address] [place] [address] 04/05/2023 12:50:51 04/05/2023 13:21:02 Syncope [id number] R55 we have decided to hold off on a loop recorder for now as her symptoms have resolved.S he does have evidence of conduction system disease on EKG so can not completely rule out high-degre e blocks contributi ng to symptoms. She is had multiple monitors in the past which have been unremarkab le. Coronary atherosclerosis [id number] I25.10 mild CAD. Recent stress test which was low risk . No anginal symptoms. Continue medical management . Hyperlipidemia 23848826 E78.5 Continue statin Low fat/carboh ydrate diet Increase exercise Lose weight Essential hypertension 62544986 I10 Continue current medication .Keep logLow-gadiel t diet < 2 gm Na/day,Reg ular exerciseWe ight loss Aortic valve stenosis 60 824101 I35.0 mild. Clinically monitor Obstructiv e sleep apnea syndrome 82368542 G47.33 on bipap Right bund le branch block AND left anterior fascicular block 51651080 I44.4 [id number] Jose Dillard MD [address] [place] [address] 07/19/2023 10:53:00 07/19/2023 11:42:11 Coronary atherosclerosis 954124212 I25.10 stress pendingCon tinue aggressive risk factor modificati on. Continue current cardiac regimen. Hyperlipidemia 65221205 E78.5 Continue statin Low fat/carboh ydrate diet Increase exercise Lose weight Essential hypertension 40644972 I10 Continue current medication .Keep logLow-gadiel t diet < 2 gm Na/day,Reg ular exerciseWe ight loss Aortic valve stenosis 60 097000 I35.0 mild. 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 9 Given clinical presentati on and risk profile , will get stress test for ischemic evaluation and risk stratifica tion Dyspnea 197353848 R06.00 Echo to evaluate EF, diastolic function, valves and pulmonary pressures [id number] Jose Dillard MD [address] [place] [address] 10/11/2023 10:02:30 10/11/2023 11:13:47 Coronary atherosclerosis 213281142 I25.10 stress was nml from 4Con tinue aggressive risk factor modificati on.Continu e current cardiac regimen. 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 Will cut down blood pressure medication s as blood pressure running on the lower side. I have asked to follow up with PCP for neurologic al workup. 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 Health Concerns Section Related Observation LastModified by Organization Detai ls LastModified Time None Recorded Concern Status LastModified by Organization Details LastModified Time None Recorded Advance Directives Directive N: Payers Insurance Date Sequence Insurance Name Policy Number Policy Ag Covered Member ID Ag Member ID Guarantor Name 10/11/2021 2 E[employer] - [employer] () Becky Hardwick Shari [id number] Becky Hardwick Shari 09/16/2023 1 [employer] (MEDICARE REPLACEMENT/ ADVANTAGE - PPO) Becky Hardwick Shari [id number] Becky Hardwick Shari 09/16/2023 2 FOR LIFE ( - MEDICARE SUPPLEMENT) Becky Mccarthy [id number] Becky Mccarthy 06/16/2024 3 [employer] - [employer] () Becky Mccarthy [id number] Becky Mccarthy 10/26/2023 3 [employer] - [employer] () Becky Mccarthy [id number] Becky Mccarthy 09/06/2021 1 [place] Becky Mccarthy [id number] Becky Mccarthy 09/06/2021 2 FOR LIFE Becky Mccarthy [id number] Becky Mccarthy 07/08/2024 2 FOR LIFE ( - MEDICARE SUPPLEMENT) Becky Mccarthy [id number] Becky Mccarthy 06/02/2024 1 [employer] (MEDICARE REPLACEMENT/ ADVANTAGE - PPO) Becky Mccarthy [id number] Becky Mccarthy Notes Date Note Type Note Provider Name and Address Organization Details Recorded Time 4 text/html 78 F here for evaluation of syncopeReferred by: Dr. Villanueva She did not a get loop. She reports no further episodes of presyncope/syncope And wishes to reconsider loop. I have told her that if she has not having any further symptoms then we can continue to hold off.No other complaints today. No chest pain, shortness of breath, PND, orthopnea, peripheral edema, palpitations, presyncope, syncope+ HTN- well controlled+HLD-on statin EKG 09/27/22: NSR 76 right bundle-branch block QRS 132, CT interval 176 QTC 438, left anteriorfascicular blockLast visit:She has had episode of might pass out , never syncopised wonky head .She had similar years 4 years ago then resolved, now back but getting better, it can last a whole day- loss of balance, light headed.She had one episode of sycnope with no prodrome unlike above spells where she found herself on the floor .She is been seen by Neurology. She is had EEG brain MRI which were all unraveling thus far.She had had extensive work up with Dr Alvarez. including Stress, carotid Dopplers ,echo, holter monitor Records from Dr. Alvarez's office reviewed and summarized belowHolter 07/2022 4% PVCs others no arrhythmiasEcho 08/23/2022 normal EF mild mild diastolic dysfunctionNuclear stress test 08/16/2022: Small apical lateral defect with sum stress score of 3. normal EF low risk stress test Carotid ultrasound 08/23/2022: Less than 50% carotid artery stenosisHeart catheterization 11/02/2018 -mild CAD Jose Dillard MD [address], [place], [address], [facility] & [place] 04/05/2023 13:19:57 4 text/html 78 F here for evaluation of syncopeReferred by: Dr. Villanueva She reports chest discomfort- vacuole in chest and dyspnea on exertion. No associated symptoms nausea vomiting diaphoresis palpitations presyncope syncope. She does ambulate with a cane. Denies any radiation of chest discomfort. + HTN- well controlled+HLD-on statin EKG 09/27/22: NSR 76 right bundle-branch block QRS 132, CT interval 176 QTC 438, left anterior fascicular block Holter 10/2022Underlying rhythm was sinus.The patient's symptoms are not associated with any arrhythmias.PACs, PVCs and short atrial runs as described above. Records from Dr. Alvarez's office reviewed and summarized belowHolter 07/2022 4% PVCs others no arrhythmiasEcho 08/23/2022 normal EF mild mild diastolic dysfunctionNuclear stress test 08/16/2022: Small apical lateral defect with sum stress score of 3. normal EF low risk stress test Carotid ultrasound 08/23/2022: Less than 50% carotid artery stenosisHeart catheterization 11/02/2018 -mild CAD Jose Dillard MD [address], [place], [address], [facility] [place] 07/19/2023 11:47:41 4 text/html 78 F here for evaluation of syncopeReferred by: Dr. Villanueva Balance worse, walks with cane, ask to fu with PCP for neuro work upBp running low and she feels poorly, will cut down medsNo chest pain, shortness of breath, PND, orthopnea, peripheral edema, palpitations, presyncope, + HTN- well controlled+HLD-on statin+ CADHeart catheterization 11/02/2018 -mild CAD Echo 07/2023Normal LV size with normal function. The ejection fraction is 65-70%.Normal diastolic function.There is mild aortic regurgitation. Nuc stress 07/2023- No ischemia, EF 68% EKG 09/27/22: NSR 76 right bundle-branch block QRS 132, CT interval 176 QTC 438, left anterior fascicular block Holter 10/2022Underlying rhythm was sinus.The patient's symptoms are not associated with any arrhythmias.PACs, PVCs and short atrial runs as described above. Records from Dr. Alvarez's office reviewed and summarized belowHolter 07/2022 4% PVCs others no arrhythmiasEcho 08/23/2022 normal EF mild mild diastolic dysfunction Nuclear stress test 08/16/2022: Small apical lateral defect with sum stress score of 3. normal EF low risk stress test Carotid ultrasound 08/23/2022: Less than 50% carotid artery stenosis Jose Dillard MD [address], [place], [address], [facility] [place] 10/11/2023 11:12:57 5 text/html Ms. Mccarthy was seen today for an audiologic evaluation due to ongoing dizziness, ringing tinnitus, and gradual hearing loss. She reports that her dizziness and tinnitus have been ongoing since taking her first Covid-19 vaccination. She reports that her hearing loss has been gradual. Otoscopic inspection revealed a moderate amount of non-occluding cerumen in the RE, and was unremarkable in the LE. Audiometric testing revealed a mild, sloping to moderately severe, high freq SNHL bilaterally with good word rec scores. 1-Discussed findings with Ms. Mccarthy. 2-Rec f/u with ENT re: cerumen removal/dizziness. 3-F/u hearing testing annually to monitor. AUSTEN RDZ [address], [place], [address], [facility] [place] 05/15/2024 14:06:44 5 text/html 06/05/24-Patient is here for bilateral cerumen impaction, she was referred by Miah Estrada. Patient tries to clean her ears herself with baby oil but has been unsuccessful. She also has conerned about a frequent and drippy nose. Denies any significant facial pain or pressure. She also has balance concerns. She has had both knees replaced. Her BMI is 36. Denies any true vertigo. Her audiogram shows symmetric HFSNHL. Letha Guallpa MD [address], [place], [address], [facility] [place] [facility] [place] [facility] [place] 06/05/2024 11:37:08 OBGyn Episode No OBEpisode recorded.
--- OUTSIDE RECORDS SUMMARY | 2024-09-02 10:43 | XMS_ITS | Encounter Summary ---
Author Organization [facility] ([place], [place], [place], [place]) Address [address] [place] [address] Care Team Providers Care Tar Chaser Name Role Phone Unavailable Primary Care Provider Unavailabl e Encounter Details Date Type Department Care Team (Late st Contact Info) Description 11/12/2018 Transcribed Document [facility] [place] [facility] [address] [place] [address] ProviderLaura MD [address] [place] [address] Social History Tobacco Use Types Packs/Day Years Used Date Smoking Tobacco: Never Assessed Comments Unknown Sex and Gender Information Value Date Recorded Sex Assigned at Not on file Legal Sex Female 3:48 PM CDT Gender Identity Not on file Sexual Orientation Not on file documented as of this encounter Miscellaneous Notes * Cerner Conversion Note - Laura Gunn MD - 11/12/2018 5:02 PM CDT Patient Education Materials Follows: Moderate Conscious Sedation, Adult, Care After These instructions provide you with information about caring for yourself after your procedure. Your health care provider may also give you more specific instructions. Your treatment has been planned according to current medical practices, but problems sometimes occur. Call your health care provider if you have any problems or questions after your procedure. What can I expect after the procedure? After your procedure, it is common: ??? To feel sleepy for several hours. ??? To feel clumsy and have poor balance for several hours. ??? To have poor judgment for several hours. ??? To vomit if you eat too soon. Follow these instructions at home: For at least 24 hours after the procedure: ??? Do not: ? Participate in activities where you could fall or become injured. ? Drive. ? Use heavy machinery. ? Drink alcohol. ? Take sleeping pills or medicines that cause drowsiness. ? Make important decisions or sign legal documents. ? Take care of children on your own. ??? Rest. Eating and drinking ??? Follow the diet recommended by your health care provider. ??? If you vomit: ? Drink water, juice, or soup when you can drink without vomiting. ? Make sure you have little or no nausea before eating solid foods. General instructions ??? Have a responsible adult stay with you until you are awake and alert. ??? Take vqjp-nxq-ckqkdfh and prescription medicines only as told by your health care provider. ??? If you smoke, do not smoke without supervision. ??? Keep all follow-up visits as told by your health care provider. This is important. Contact a health care provider if: ??? You keep feeling nauseous or you keep vomiting. ??? You feel light-headed. ??? You develop a rash. ??? You have a fever. Get help right away if: ??? You have trouble breathing. This information is not intended to replace advice given to you by your health care provider. Make sure you discuss any questions you have with your health care provider. Document Released: 12/04/2013 Document Revised: 07/18/2016 Document Reviewed: 06/04/2016 [employer] Interactive Patient Education ? 2019 [employer] Radial Site Care Refer to this sheet in the next few weeks. These instructions provide you with information about caring for yourself after your procedure. Your health care provider may also give you more specific instructions. Your treatment has been planned according to current medical practices, but problems sometimes occur. Call your health care provider if you have any problems or questions after your procedure. What can I expect after the procedure? After your procedure, it is typical to have the following: ??? Bruising at the radial site that usually fades within 1?2 weeks. ??? Blood collecting in the tissue (hematoma) that may be painful to the touch. It should usually decrease in size and tenderness within 1?2 weeks. Follow these instructions at home: ??? Take medicines only as directed by your health care provider. ??? You may shower 24?48 hours after the procedure or as directed by your health care provider. Remove the bandage (dressing) and gently wash the site with plain soap and water. Pat the area dry with a clean towel. Do not rub the site, because this may cause bleeding. ??? Do not take baths, swim, or use a hot tub until your health care provider approves. ??? Check your insertion site every day for redness, swelling, or drainage. ??? Do not apply powder or lotion to the site. ??? Do not flex or bend the affected arm for 24 hours or as directed by your health care provider. ??? Do not push or pull heavy objects with the affected arm for 24 hours or as directed by your health care provider. ??? Do not lift over 10 lb (4.5 kg) for 5 days after your procedure or as directed by your health care provider. ??? Ask your health care provider when it is okay to: ? Return to work or school. ? Resume usual physical activities or sports. ? Resume sexual activity. ??? Do not drive home if you are discharged the same day as the procedure. Have someone else drive you. ??? You may drive 24 hours after the procedure unless otherwise instructed by your health care provider. ??? Do not operate machinery or power tools for 24 hours after the procedure. ??? If your procedure was done as an outpatient procedure, which means that you went home the same day as your procedure, a responsible adult should be with you for the first 24 hours after you arrive home. ??? Keep all follow-up visits as directed by your health care provider. This is important. Contact a health care provider if: ??? You have a fever. ??? You have chills. ??? You have increased bleeding from the radial site. Hold pressure on the site. Get help right away if: ??? You have unusual pain at the radial site. ??? You have redness, warmth, or swelling at the radial site. ??? You have drainage (other than a small amount of blood on the dressing) from the radial site. ??? The radial site is bleeding, and the bleeding does not stop after 30 minutes of holding steady pressure on the site. ??? Your arm or hand becomes pale, cool, tingly, or numb. This information is not intended to replace advice given to you by your health care provider. Make sure you discuss any questions you have with your health care provider. Document Released: 03/18/2011 Document Revised: 07/21/2016 Document Reviewed: 09/01/2014 [employer] Interactive Patient Education ? 2019 [employer] Transradial Angiogram Transradial angiogram is an imaging test. This test uses X-ray images and colored dye that is made up of an iodine solution (contrast dye). This test is done to check for any abnormalities in the vessels that might affect blood flow, such as: ??? A blocked blood vessel. ??? A narrowed blood vessel. ??? A blood clot. ??? Abnormal, inherited blood vessel connections. During this test, a small, flexible tube (catheter) is inserted into an artery in the wrist (radial artery). The catheter is moved from the radial artery into other blood vessels in the body that need to be examined. Contrast dye is used to make blood vessels visible on X-ray images that are taken during the procedure. Tell a health care provider about: ??? Any allergies you have. ??? All medicines you are taking, including vitamins, herbs, eye drops, creams, and hnrz-oet-kkxnnqb medicines. ??? Any problems you or family members have had with anesthetic medicines. ??? Any blood disorders you have. ??? Any surgeries you have had. ??? Any medical conditions you have. ??? Whether you are or may be . What are the risks? Generally, this is a safe procedure. However, problems may occur, including: ??? Infection. ??? Bleeding. ??? Allergic reactions to medicines or dyes. ??? Damage to other structures or organs, such as the blood vessels, lungs, or heart. ??? Blood clots. ??? Blood flow through the radial artery stopping or slowing down. This is rare. What happens before the procedure? Ask your health care provider about: ? Changing or stopping your regular medicines. This is especially important if you are taking diabetes medicines or blood thinners. ? Taking medicines such as aspirin and ibuprofen. These medicines can thin your blood. Do not take these medicines before your procedure if your health care provider instructs you not to. ??? Follow instructions from your health care provider about eating or drinking restrictions. ??? Do not use tobacco products for at least 24 hours before your procedure or as told by your health care provider. This includes cigarettes, chewing tobacco, or e-cigarettes. ??? Ask your health care provider how your surgical site will be marked or identified. ??? You may be given antibiotic medicine to help prevent infection. ??? You may have a physical exam. ??? You may have tests, including: ? Blood tests. ? X-rays. ??? Plan to have someone take you home after the procedure. ??? If you will be going home right after the procedure, plan to have someone with you for 24 hours. What happens during the procedure? To reduce your risk of infection: ? Your health care team will wash or sanitize their hands. ? Your skin will be washed with soap. ??? An IV tube will be inserted into one of your veins. ??? You will be given the following: ? A medicine to help you relax (sedative). ? A medicine that is injected to numb the area near the radial artery in your wrist (local anesthetic). ??? A needle will be inserted into your radial artery in your wrist. ??? A catheter will be inserted into your radial artery. The needle helps guide the catheter into your radial artery. ??? The catheter will be moved through your body to the desired blood vessel. An X-ray machine (fluoroscope) will help your health care provider bring the catheter to the correct place in your body. ??? Contrast dye will be injected into the catheter and will travel to the blood vessel that is being examined. ??? X-ray images will be taken of how the dye flows through your blood vessel. While the images are being taken, you may be given instructions on breathing, swallowing, moving, or talking. ??? The catheter and needle will be removed from your body. ??? A pressure (compression) wrap will be applied to your wrist to stop bleeding. The procedure may vary among health care providers and hospitals. What happens after the procedure? You will need to keep your wrist still for as long as told by your health care provider. ??? The pressure applied to your wrist will be gradually decreased until the compression wrap is removed. ??? You may have soreness and bruising in your wrist. This is normal. This should get better within about 1 week. ??? Your blood pressure, heart rate, breathing rate, and blood oxygen level will be monitored often until the medicines you were given have worn off. ??? You may continue to receive fluids and medicines through an IV tube. ??? Do not drive for 24 hours if you received a sedative. ??? You may have to wear compression stockings. These stockings help to prevent blood clots and reduce swelling in your legs. This information is not intended to replace advice given to you by your health care provider. Make sure you discuss any questions you have with your health care provider. Document Released: 11/07/2012 Document Revised: 10/16/2016 Document Reviewed: 01/18/2016 [employer] Interactive Patient Education ? 2019 [employer]. documented in this encounter Plan of Treatment Not on file documented as of this encounter Visit Diagnoses Not on filedocumented in this encounter
--- OUTSIDE RECORDS SUMMARY | 2024-09-02 10:43 | XMS_ITS | Encounter Summary ---
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 Role Phone Unavailable Primary Care Provider Unavailabl e Encounter Details Date Type Department Care Team (Late st Contact Info) Description 11/12/2018 Transcribed Document [facility] Family Medicine [facility] [place] [address] ProviderLaura MD [address] [place] [id number] Social History Tobacco Use Types Packs/Day Years Used Date Smoking Tobacco: Never Assessed Comments Unknown Sex and Gender Information Value Date Recorded Sex Assigned at Not on file Legal Sex Female 3:48 PM CDT Gender Identity Not on file Sexual Orientation Not on file documented as of this encounter Miscellaneous Notes * Cerner Conversion Note - Laura ProviderMD - 11/12/2018 11:52 AM CDT Pre Procedure Adult Entered On: 11/12/2018 11:57 EDT Performed On: 11/12/2018 11:52 EDT by MADY COE RN Height and Weight, Clinical Dosing Height Source : Measured Height Entry Format : Keith Height, Feet : 5 ft(Converted to: 152 cm, 60 Inch) Height, Inches : 7 Inch(Converted to: 0 ft 7 Inch, 17.78 cm) Clinical Height : 170.18 cm Weight Source : Standing scale Weight Entry Format : Keith Clinical Dosing Weight : 100 kg Weight, Pounds : 220 lb Body Surface Area (BSA) : 2.11 m2 Body Mass Index : 34.5 kg/m2 (HI) Robeline Body Weight : 61 kg MADY COE RN - 11/12/2018 11:52 EDT Health Histories Smoking Status : Never (less than 100 in lifetime; none in last 30 days) Smokeless Tobacco Status : Never MADY COE RN - 11/12/2018 11:52 EDT Social History (As Of: 11/12/2018 11:57:15 EDT) Tobacco: Smoking Status Never smoker. (Last Updated: 11/11/2015 14:01:25 EDT by RENAN MORENO, RN) Alcohol: Alcohol Use History Yes. Date/Time of Last Drink: 1 per month. Alcohol Use Frequency Monthly. (Last Updated: 11/11/2015 14:01:45 EDT by RENAN MORENO, RN) Substance Abuse: Drug Use Hx: No. Use in Last 12 Months: No. (Last Updated: 11/11/2015 14:01:51 EDT by RENAN MORENO, RN) Infectious Disease History Infectious Disease History : Chicken pox/Shingles, Measles Fever/Chills Last 48 Hours : No Travel To Regions with Travel Advisories : No Travel Outside [place] Within Last 30 Days : No Contact With Traveler to Advisory Region : No Tuberculosis Symptoms : Fatigue MADY COE RN - 11/12/2018 11:52 EDT Anesthesia/Transfusion History Family History of Anesthesia Reaction : No prior transfusion(s) Blood Transfusion Acceptable to Patient : Yes Transfusion History : Prior anesthesia reaction Type of Anesthesia Reaction : Other: breathing difficulty in PACU per patient Family History of Anesthesia Reaction : None MADY COE RN - 11/12/2018 11:52 EDT Functional Assessment Living Situation : Home Patient Lives With : Adult Child/Children Current Home Treatments : BiPAP MADY COE RN - 11/12/2018 11:52 EDT Psychosocial History Do You Have a History of the Following? : Patient denies history Currently in Unsafe Situation : No Tried to Harm Yourself in the Past? : No Thoughts of Harming/Killing Yourself : No MADY COE RN - 11/12/2018 11:52 EDT Advance Directive Patient has Advance Directive *Q : No, patient refuses Advance Directive information MADY COE RN - 11/12/2018 11:52 EDT Teaching/Learning Assessment Barriers To Learning : None evident Individuals Taught : Patient, Child Readiness to Learn : Cooperative Readiness to Learn : Demonstration, Explanation Learning Style Preferences Patient : Demonstration, Verbal explanation Learning Style Preferences Family : Demonstration MADY COE RN - 11/12/2018 11:52 EDT Education Topics, Periop Preadmission Perioperative Education [place] : Verbalizes understanding IV's : Verbalizes understanding NPO Status/Directions : Verbalizes understanding Pain Management : Verbalizes understanding Postoperative Care Preparations : Verbalizes understanding Preprocedure Preparations : Verbalizes understanding Preprocedure Tests/Labs : Verbalizes understanding MADY COE RN - 11/12/2018 11:52 EDT General Info Want Family/Rep/Phys Notified of Admit : No Emergency Contact #1 : Laxmi Yoo Emergency Contact #1 Phone Number : [phone] Emergency Contact #1 Relationship : daughter Emergency Contact #2 : x Emergency Contact #2 Phone Number : x Emergency Contact #2 Relationship : x Primary Language : Upper Sorbian Preferred Communication Mode : Verbal Communication Barrier : None MADY COE RN - 11/12/2018 11:52 EDT Sleep Apnea Risk Assmt BiPAP/CPAP Ordered for Home Use : Yes Hx of Obstructive Sleep Apnea Diagnosis : Yes BiPAP/CPAP Used at Home : Yes Age over 50 Years Old : Yes Gender Male : No MADY COE RN - 11/12/2018 11:52 EDT Ovidio Scale Ovidio Sensory Perception : No impairment Ovidio Moisture : Rarely moist Ovidio Activity : Walks frequently Ovidio Mobility : No limitation Ovidio Nutrition : Adequate Ovidio Friction and Shear : No apparent problem Ovidio Score : 22 MADY COE RN - 11/12/2018 11:52 EDT Pain Assessment Pain Assessment : Initial assessment Pain Scale Used : 0-10 Scale MADY COE RN - 11/12/2018 11:52 EDT Fall Risk Scales ABCs Fall Injury Risk Identification : None THAO Hx Falls Immediate/Within 3 Months : No Thao Secondary Diagnosis : Yes THAO Use of Ambulatory Aid : Bed rest/Nurse assist THAO IV Therapy or IV Access : Yes Thao Gait/Transferring : Normal, bedrest, immobile Thao Mental Status : Oriented to own ability Thao Fall Risk Score : 35 THAO Fall Scale Risk Level : 25-45 Medium Risk [place] Fall Interventions : Adequate lighting, Assistive devices within reach, Bed in low position, Call device within reach, Fall prevention handout/education per facility policy, Hourly comfort/safety rounds, Non-slip footwear, Personal items within reach, Reinforced to call for assistance before getting out of bed, Room free of clutter/spills, Upper side-rails up, Wheels locked, Wires/Cords secured MADY COE RN - 11/12/2018 11:52 EDT Valuables and Belongings Valuables and Belongings : Clothing Clothing : Common streetwear Clothing Disposition : Bedside MADY COE RN - 11/12/2018 11:52 EDT Pain Scale Intensity : 0 MADY COE RN - 11/12/2018 11:52 EDT Image 4 - Images currently included in the form version of this document have not been included in the text rendition version of the form. Electronically signed by Silverio Mix Conversion Well Service Pump Equipment Operator Cerner at 06/13/2022 3:00 PM CDT documented in this encounter Plan of Treatment Not on file documented as of this encounter Visit Diagnoses Not on filedocumented in this encounter
--- OUTSIDE RECORDS SUMMARY | 2024-09-02 10:43 | XMS_ITS | Data Portability ---
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 She has had bilateral mastectomies for bilateral disease. At this point, she has no specific evidence of recurrence on exam or laboratory testing. Additionally, I think that we have discussed the potential for just to use the tamoxifen for 2 further years. She says actually since she took that previously, she is agreeable to this. So, we will do this, even though typically we would move her out to year's followup, since we just started her on tamoxifen, we will see her back in 6 months and repeat labs and exam at that time. She is agreeable to this and pleased with our discussion. [email or web address] Not available 04/02/2019 08:05:52 Plan of Treatment Reminders Order Date Submit Date Provider Last Modified By Organization Details Last Modified Time Details Appointments None recorded. Lab None recorded. Referral None recorded. Procedures None recorded. Surgeries None recorded. Imaging None recorded. Medication Orders tamoxifen 20 mg tablet 2019 020 [id number], [address] [place] [address], [place], [place], [id number], 0 16:26:50 Patient TargetsNo targets recorded. Patient InstructionsNo instructions recorded. Reason for Referral None Reported. Results Created Date Observation Date Name Description Value Unit Range Abnormal Flag Note LastModifiedBy Organization Detail LastModifiedTime 03/29/19 20 03/29/2019 CBC w/ auto diff white blood cells 7.9 K/uL 3.8-10 .8 normal Not Available [facility] [address] [place] [address], [phone], 03/29/2019 14:13:27 03/29/19 20 03/29/2019 CBC w/ auto diff red blood cells 5.10 M/uL 3.80-5 .20 normal Not Available [facility] [address] [place] [address], [id number], 03/29/2019 14:13:27 03/29/19 20 03/29/2019 CBC w/ auto diff hemoglobin 15.3 g/dL 12.0-1 6.0 normal Not Available [facility] [address] [place] [address], [phone], 03/29/2019 14:13:27 03/29/19 20 03/29/2019 CBC w/ auto diff hematocrit 44.1 % 35.0-4 7.0 normal Not Available [facility] [address] [place] [address], [address], 03/29/2019 14:13:27 03/29/19 20 03/29/2019 CBC w/ auto diff MCV 87 fL 80-100 normal Not Available [facility] [address] [place] [address], [address], 03/29/2019 14:13:27 03/29/19 20 03/29/2019 CBC w/ auto diff MCH 30 pg 26-35 normal Not Available [facility] [address] [place] [address], [address], 03/29/2019 14:13:27 03/29/19 20 03/29/2019 CBC w/ auto diff MCHC 35 g/dL 32-36 normal Not Available [facility] [address] [place] [address], [phone], 03/29/2019 14:13:27 03/29/19 20 03/29/2019 CBC w/ auto diff RDW 14.1 % 11.0-1 5.0 normal Not Available [facility] [address] [place] [address], [address], 03/29/2019 14:13:27 03/29/19 20 03/29/2019 CBC w/ auto diff MPV 8.3 fL 6.2-10 .5 normal Not Available [facility] [address] [place] [address], [phone], 03/29/2019 14:13:27 03/29/19 20 03/29/2019 CBC w/ auto diff platelet count 247 K/uL 130-40 0 normal Not Available [facility] [address] [place] [address], [phone], 03/29/2019 14:13:27 03/29/19 20 03/29/2019 CBC w/ auto diff neutrophil,a bsolute 4.9 K/uL 1.6-8. 4 normal Not Available [facility] [address] [place] [address], [id number], 03/29/2019 14:13:27 03/29/19 20 03/29/2019 CBC w/ auto diff lymphocyte,a bsolute 2.3 K/uL 0.4-5. 1 normal Not Available [facility] [address] [place] [address], [id number], 03/29/2019 14:13:27 03/29/19 20 03/29/2019 CBC w/ auto diff monocyte,abs olute 0.6 K/uL 0.0-1. 2 normal Not Available [facility] [address] [place] [address], [address], 03/29/2019 14:13:27 03/29/19 20 03/29/2019 CBC w/ auto diff eosinophil,a bsolute 0.1 K/uL 0.0-0. 8 normal Not Available [facility] [address] [place] [address], [address], 03/29/2019 14:13:27 03/29/19 20 03/29/2019 CBC w/ auto diff basophil,abs olute 0.0 K/uL 0.0-0. 3 normal Not Available [facility] [address] [place] [address], [address], 03/29/2019 14:13:27 03/29/19 20 03/29/2019 CBC w/ auto diff % neutrophils 61.7 % 42.0-7 8.0 normal Not Available [facility] [address] [place] [address], [id number], 03/29/2019 14:13:27 03/29/19 20 03/29/2019 CBC w/ auto diff % lymphocytes 29.7 % 11.0-4 7.0 normal Not Available [facility] [address] [place] [address], [address], 03/29/2019 14:13:27 03/29/19 20 03/29/2019 CBC w/ auto diff % monocytes 7.2 % 0.0-11 .0 normal Not Available [facility] [address] [place] [address], [address], 03/29/2019 14:13:27 03/29/19 20 03/29/2019 CBC w/ auto diff % eosinophils 0.9 % 0.0-7. 0 normal Not Available [facility] [address] [place] [address], [address], 03/29/2019 14:13:27 03/29/19 20 03/29/2019 CBC w/ auto diff % basophils 0.5 % 0.0-3. 0 normal Not Available [facility] [address] [place] [address], [address], 03/29/2019 14:13:27 03/29/19 20 03/29/2019 CBC w/ auto diff nucleated red cells 0.0 % 0.0-0. 9 normal Not Available [facility] [address] [place] [address], [address], 03/29/2019 14:13:27 03/29/19 20 03/29/2019 CBC w/ auto diff nucleated RBCs, absolute 0.00 K/uL not estab. normal Not Available [facility] [address] [place] [address], [address], 03/29/2019 14:13:27 03/29/19 20 03/29/2019 CMP, serum or plasm a glucose 150 mg/dL 74-100 high Not Available [facility] [address] [place] [address], [address], 03/29/2019 16:01:27 03/29/19 20 03/29/2019 CMP, serum or plasm a blood urea nitrogen 11 mg/dL 6-20 normal Not Available [facility] [address] [place] [address], [address], 03/29/2019 16:01:27 03/29/19 20 03/29/2019 CMP, serum or plasm a creatinine 0.88 mg/dL 0.50-0 .95 normal Not Available [facility] [address] [place] [address], [address], 03/29/2019 16:01:27 03/29/19 20 03/29/2019 CMP, serum or plasm a BUN/creatini ne ratio 13 (calc ) 10-20 normal Not Available [facility] [address] [place] [address], [address], 03/29/2019 16:01:27 03/29/19 20 03/29/2019 CMP, serum or plasm a sodium 140 mmol/ L 136-14 5 normal Not Available [facility] [address] [place] [address], [address], 03/29/2019 16:01:27 03/29/19 20 03/29/2019 CMP, serum or plasm a potassium 3.9 mmol/ L 3.4-5. 0 normal Not Available [facility] [address] [place] [address], [address], 03/29/2019 16:01:27 03/29/19 20 03/29/2019 CMP, serum or plasm a chloride 101 mmol/ L 98-107 normal Not Available [facility] [address] [place] [address], [address], 03/29/2019 16:01:27 03/29/19 20 03/29/2019 CMP, serum or plasm a carbon dioxide 28 mmol/ L 20-32 normal Not Available [facility] [address] [place] [address], [address], 03/29/2019 16:01:03/29/19 20 03/29/2019 CMP, serum or plasm a anion gap 11 (calc ) 7-25 normal Not Available [facility] [address] [place] [address], [address], 03/29/2019 16:01:27 03/29/19 20 03/29/2019 CMP, serum or plasm a calcium 9.9 mg/dL 8.6-10 .2 normal Not Available [facility] [address] [place] [address], [address], 03/29/2019 16:01:27 03/29/19 20 03/29/2019 CMP, serum or plasm a total protein 7.8 g/dL 6.4-8. 3 normal Not Available [facility] [address] [place] [address], [address], 03/29/2019 16:01:27 03/29/19 20 03/29/2019 CMP, serum or plasm a albumin 4.3 g/dL 3.5-5. 2 normal Not Available [facility] [address] [place] [address], [address], 03/29/2019 16:01:27 03/29/19 20 03/29/2019 CMP, serum or plasm a globulin 3.5 g/dL_ (calc ) 1.5-4. 5 normal Not Available [facility] [address] [place] [address], [address], 03/29/2019 16:01:27 03/29/19 20 03/29/2019 CMP, serum or plasm a albumin/glob ulin ratio 1.2 (calc ) 1.1-2. 5 normal Not Available [facility] [address] [place] [address], [address], 03/29/2019 16:01:27 03/29/19 20 03/29/2019 CMP, serum or plasm a bilirubin, total 0.6 mg/dL 0.1-1. 2 normal Not Available [facility] [address] [place] [address], [address], 03/29/2019 16:01:27 03/29/19 20 03/29/2019 CMP, serum or plasm a alkaline phosphatase 86 U/L 35-105 normal Not Available [facility] [address] [place] [address], [address], 03/29/2019 16:01:27 03/29/19 20 03/29/2019 CMP, serum or plasm a AST 33 U/L 0-32 high Not Available [facility] [address] [place] [address], [address], 03/29/2019 16:01:27 03/29/19 20 03/29/2019 CMP, serum or plasm a ALT 37 U/L 0-33 high Not Available [facility] [address] [place] [address], [address], 03/29/2019 16:01:27 03/29/19 20 03/29/2019 CMP, serum or plasm a GFR 74 >= 60 normal Not Available [facility] [address] [place] [address], [address], 03/29/2019 16:01:27 03/29/19 20 03/29/2019 CMP, serum or plasm a GFR non- 64 >= 60 normal NOT E NEW calcu latio n for GFR is based on the Natio nal Kidne y Found ation CKD-E PI equat ion and allow s for repor ting GFR value s great er than 60 mL/mi n/1.7 3 m2. This calcu latio n has not been valid ated for patie nts less than 18 yrs., pregn ant women and Hispa nics. Chron ic kidne y disea se is defin ed as kidne y damag e or GFR less than 60 mL/mi n/1.7 3 m2 for 3 month s or longe r. Not Available [facility] [address] [place], [address], 03/29/2019 16:01:27 Result Notes None recorded. Problems Name Problem SNOMED Code Status Onset Date Resolution Date Notes Provider Name and Address Organization Details Recorded Time Primary malignant neoplasm of female breast 69079341 Active 020 ANTONIO ALFARO MD [address] [place], [address] , [facility] 0 16:25:12 Problem Notes None recorded. Medical Equipment None Reported. Allergies Allergen ID Allergen Name Allergen Category Reaction Reaction Severity Criticality Documentation Date Start Date Code Code System Note Provider Name and Address Organization Details Recorded Time 285709 Product containin g penicilli n (product) medicatio n Not available Not available Not available 01/10/2019 64825 8001 SNOMED Filomenasho Baird [facility] 9 16:31:03 492967 Substance with sulfonami de structure and antibacte rial mechanism of action (substanc e) medicatio n Not available Not available Not available 01/10/2019 44712 8003 SNOMED Filomena Oli [facility] 9 16:31:07 Medications Name Sig Start Date Stop Date Status Note LastModified by Organization Details LastModified Time anastrozole 1 mg tablet Take 1 tablet every day by oral route. 03/29 completed Not Available Not Available Not Available lisinopril 20 mg tablet Take 1 tablet every day by oral route. active Not Available Not Available No t Available temazepam 15 mg capsule Take 1 capsule every day by oral route. active Not Available Not Available No t Available temazepam 30 mg capsule Take 1 capsule every day by oral route. 03/29 completed Not Available Not Available Not Available gabapentin 300 mg capsule Take 1 capsule every day by oral route. active Not Available Not Available No t Available tamoxifen 20 mg tablet Take 1 tablet every day by oral route. 2019 active Not Available Not Available Not Avai lable melatonin 03/29 completed Not Available Not Available Not Available simvastatin active Not Available Not A vailable Not Available [place]-3 03/29 completed Not Available Not Available Not Available Vitamin B-Complex daily active Not Available Not Available No t Available [facility] 180 mg tablet Take 1 tablet every day by oral route. active Not Available Not Available No t Available Multi Vitamin daily active Not Available Not Available Not Available Vitals Date Recorded Body weight Body mass index (BMI) Body height Body temperature Heart rate Oxygen saturation Oxygen saturation in Arterial blood by Pulse oximetry Systolic And Diastolic Provider Name and Address Organization Details Last Updated DateTime 0 139877 g 38.1 kg/m2 170.18 cm 97.3 [degF] 87 /min 95 % 95 % 112/58 mm[Hg] Afua Knapp [facility] 0 14:56:51 Social History Question Answer Notes LastModified by Organizat ion Details LastModified Time Tobacco Smoking Status Never Smoker Afuagisella Knapp [facility] 03/29/2019 14:55:04 How Much Tobacco Do You Chew? None Information not available 03/29/2019 What Was The Date Of Your Most Recent Tobacco Screening? 03/29/2019 Information not available 03/29/2019 How Much Tobacco Do You Smoke? No Information not available 03/29/2019 How Many Years Have You Smoked Tobacco? 0 Information not available 03/29/2019 Sex: Unknown Functional Status Question Answer Note LastModified by Organizat ion Details LastModified Time What is your level of alcohol consumption? None Information not available 03/29/2019 Do you or have you ever used smokeless tobacco? Never used smokeless tobacco Information not available 03/29/2019 Do you or have you ever used e-cigarettes or vape? Never used electronic cigarettes Information not available 03/29/2019 Mental Status None recorded. Family History Nothing Reported. Medical History No medical history recorded. Gynecological HistoryNo gynecological history recorded. Obstetrics History GPAL:G 0 P 0 0 0 0 Immunizations Vaccine Type Date Status Note Provider Nam e and Address Organization Details Recorded Time Influenza, split virus, quadrivalent, preservative 9 completed Afua Hurstparadisetracie [facility] 03/29/2019 14:53:50 Past Encounters Encounter ID Performer Location Encounter Start Date Encounter Closed Date Diagnosis/Indication Diagnosis SNOMED-CT Code Diagnosis ICD10 Code Diagnosis Note [id number] ELOY MASTERSON MD HEM/ONC [facility] [address] [address] 6 03/17/2016 13:32:37 03/17/2016 15:01:08 [id number] Kevyn NICOLE MD GENERAL SURGERY [address] 1 04/04/2016 12:28:27 04/04/2016 13:58:56 [id number] ELOY MASTERSON MD HEM/ONC [facility] [address] [place] [address] 6 06/16/2016 13:56:03 06/16/2016 15:08:59 [id number] ELOY MASTERSON MD HEM/[facility]C [facility] [address] [place] [address] 6 09/15/2016 13:40:25 09/15/2016 14:34:54 [id number] Kevyn NICOLE MD GENERAL SURGERY [address] 1 11/14/2016 12:49:28 11/14/2016 13:04:35 [id number] ELOY MASTERSON MD HEM/ONC [facility] [address] [address] 6 12/15/2016 13:41:42 12/15/2016 14:35:57 [id number] ELOY MASTERSON MD HEM/[facility]C [facility] [address] [address] 6 03/30/2017 13:38:04 03/30/2017 14:45:08 [id number] ELOY MASTERSON MD HEM/[facility]C [facility] [address] [place] [address] 06/29/2017 12:56:16 06/29/2017 14:16:44 [id number] ELOY MASTERSON MD HEM/[facility]C [facility] [address] [place] [address] 10/19/2017 13:23:14 10/19/2017 14:26:15 [id number] ELOY MASTERSON MD HEM/[facility]C [facility] [address] [place] [address] 01/25/2018 13:44:57 01/26/2018 15:17:15 [id number] AGUSTIN ANNE MD BONE [address]ENSITY [address] [place] [address] 03/15/2018 14:00:35 03/15/2018 14:22:34 [id number] DARIA CAMACHO MD NEUROLOGY [facility] [address] [place] [id number] 04/16/2018 09:15:54 04/16/2018 11:54:46 [id number] BREN FERNÁNDEZ MD ENT [address] [place] [address] 05/03/2018 13:15:38 05/03/2018 13:56:06 [id number] ELOY MASTERSON MD HEM[facility]C [facility] [address],[facility] [address] [place] [address] 07/26/2018 13:25:12 07/26/2018 15:07:53 [id number] ANTONIO ALFARO MD HEM/ONC [facility] [address] [place] [address] 03/29/2019 14:21:20 04/09/2019 03:47:51 Primary malignant neoplasm of female breast 97456576 C50.412 [id number] MIKEY QUEEN MD PRIMARY CARE [facility] [address] [place] [address] 11/01/2022 15:44:37 11/01/2022 16:49:57 [id number] MIKEY QUEEN MD PRIMARY CARE [facility] [address] [place] [address] 12/12/2022 09:55:51 12/12/2022 11:01:56 [id number] MIKEY QUEEN MD PRIMARY CARE [facility] [address] [place] [address] 05/05/2023 13:52:47 05/05/2023 15:44:18 [id number] MIKEY QUEEN MD PRIMARY CARE [facility] [address] [facility] [place] [address] 08/16/2023 13:38:47 08/16/2023 14:29:36 [id number] MIKEY QUEEN MD PRIMARY CARE [facility] [address] [address] [address] [place] [address] 11/01/2023 09:53:28 11/01/2023 10:29:41 [id number] MIKEY QUEEN MD PRIMARY CARE [facility] [address] [address] [address] [place] [address] 02/19/2024 13:53:33 02/19/2024 14:43:31 Health Concerns Section Related Observation LastModified by Organization Detai ls LastModified Time None Recorded Concern Status LastModified by Organization Details LastModified Time None Recorded Advance Directives Directive None Recorded Payers Insurance Date Sequence Insurance Name Policy Number Policy Ag Covered Member ID Ag Member ID Guarantor Name 02/19/2024 3 FOR LIFE ( - MEDICARE SUPPLEMENT) Becky Mccarthy [id number] Becky Mccrayner 02/19/2024 1 [place] Becky Mccarthy [id number] Becky Mccarthy 02/19/2024 2 FOR LIFE ( - MEDICARE SUPPLEMENT) Becky Gilliamffner [id number] Becky Gilliamffner 03/22/2024 1 [employer] (MEDICARE REPLACEMENT/ ADVANTAGE - PPO) [id number] Becky Mccarthy [id number] Becky Gilliamffner 04/22/2024 2 FOR LIFE () eBcky Gilliamffner [id number] Becky Gilliamffner 04/22/2024 2 FOR LIFE ( - MEDICARE SUPPLEMENT) Becky Mccarthy [id number] Becky Mccarthy 02/19/2024 4 [facility] () Becky Mccarthy [id number] Becky Mccarthy 02/19/2024 2 [facility] - [employer] () Becky Mccarthy [id number] Becky Mccarthy Notes Date Note Type Note Provider Name and Address Organization Details Recorded Time 0 text/html HPIReported bypatient.Advanced Directives / [employer] AuthorizationsAdvanced Directives? NO Dischargedischarge disposition stable Distress ScreeningHas the distress screening been completed in the last 45 days? YES; Distress level 4 Practical Problemsno practical problems Family Problemsno family problems Emotional Problemsno emotional problems Spiritual/Religiousspiritua l/spiritism problems? NO Physical Problemsfeeling swollen;sleep issues;tingling in hands and feet INTERVAL HISTORY: This is a 74-year-old female previous patient of Dr. Eloy Masterson. She had left-sided mastectomy years ago for breast cancer. We are currently treating for her right-sided breast cancer. She had a completion mastectomy on the right side more than 3 years ago. It was a very small 0.7 cm, grade I, ER positive, 100% IN, 60% IN negative cancer with margins. No evidence of any lymph nodes. She was placed initially on the drug Arimidex and has been on this for almost 3 years. Additionally, she says that she took tamoxifen previously for her cancer from . As a new doctor to her today, she actually said that she had some questions that she specifically wanted to ask. The main one is that she just did not want to take her Arimidex anymore. We had a lengthy discussion about this and she has agreed to switch to tamoxifen. ANTONIO ALFARO MD [facility] [place], [address], [facility] 04/02/2019 08:53:31 OBGyn Episode No OBEpisode recorded.
--- OUTSIDE RECORDS SUMMARY | 2024-09-02 10:43 | XMS_ITS | Clinical Summary ---
Author Organization [employer] ([place], [place], [place], [place]) Address [address] [place] [address] Care Team Providers Care Product/Device Technologist Name Role Phone Unavailable Primary Care Provider Unavailabl e Social History Tobacco Use Types Packs/Day Years Used Date Smoking Tobacco: Never Assessed Comments Unknown Sex and Gender Information Value Date Recorded Sex Assigned at Not on file Legal Sex Female 3:48 PM CDT Gender Identity Not on file Sexual Orientation Not on file Plan of Treatment Health Maintenance Due Date Last Done Comments DXA SCAN 1944 Depression Screening (12+) 1956 Tobacco Cessation Counseling and Screening (12+) 1956 Pneumococcal 50+ years (1 of 1 - PCV) 01/23/1994 Shingles Vaccine (Zoster) (1 of 2) 01/23/1994 DTAP/TDAP/TD VACCINES (2 - T d or Tdap) 12/08/2018 12/08/2008 Respiratory Syncytial Virus (RSV) Adult or (1 - 1-dose 75+ series) 01/23/2019 COVID-19 VACCINE ( - season) 2023 05/14/2021, 05/21/2020, 04/23/2020 Falls Risk Screening 02/28/2024 Influenza Vaccine (#1) 2024 11/16/2021
--- OUTSIDE RECORDS SUMMARY | 2024-09-02 10:43 | XMS_ITS | Data Portability ---
Author Organization TOMMIE HEMANT [facility] GOTH[facility] CLOSED Address [address] [address] [place] [address] Care Team Providers Care Terminal Clerk Name Role Phone ANTONIO ALFARO Hematology/Oncology AGUSTIN ANNE State Inspector Assessment Encounter Date Assessment Date Assessment LastModified by Organization Details LastModified Time 12/12/2022 12/12/2022 1. Diabetes mellitus type 2 with some previous hyperglycemia. Her hemoglobin A1c was 6.2, 5 weeks ago. Patient now is back on nateglinide 60 mg twice daily. Stopped Ozempic about 3 weeks ago. Stay on low-carb diet 2. Remote history of breast cancer. She is current on her mammogram status. 3. Hypercholesterol emia. Continue simvastatin 10 mg daily and omega-3 fish oil as directed and low-cholesterol low-fat diet 4. Obstructive sleep apnea. Continue BiPAP every night. She is given referral to Dr. Nishi Leroy per her request for management of her sleep apnea and neurology consultation 5. Bilateral tinnitus. Patient is given audiology referral to Dr. Lteha Arnold in the next 1 month 6. Patient is given high-dose flu vaccine today 7. Allergic rhinitis. Restart fexofenadine 180 mg daily. She has had some postnasal drainage recently. 8. Previous syncope. Keep appoint with Dr. leroy the neurologist 9. Localized edema. Prescribed furosemide 20 mg every other day. Stay on low-sodium diet 10. RTC 1 month Not available 12/13/2022 06:53:21 05/05/2023 05/05/2023 Patient presented to office today for their Medicare Annual Wellness Visit. Wellness visit Questionnaire was reviewed. Depression screening was negative and no followup plan is needed. Emphasized preventive health measures including fall prevention to help reduce health risks and promote healthy living. 1. Annual Medicare wellness visit. Please see above 2. Type 2 diabetes mellitus. Checking an A1c today. Refilled nateglinide 60 mg twice daily with food 3. Hypercholesterol emia. Check FLP and CMP today. Refilled simvastatin 10 mg daily. 4. Chronic insomnia. Stable. Refilled temazepam 30 mg nightly #90 with no refills. 5. Obstructive sleep apnea. Continue on her BiPAP every night. As being actively managed by Dr. Leroy 6. History of coronary artery disease poss related to her diabetes. Stable being actively managed by Dr. Jorgito Preciado 7. Morbid obesity. Slightly improved. Patient commended on some weight loss. Continue with diet and exercise. 8. Localized edema. Stable with Lasix 20 mg every other day which was refilled. 9. Peripheral neuropathy. Stable. Refilled gabapentin 300 mg 3 times daily #270 with no refills 10. Mild amnesia. Stable. Continue donepezil 5 mg daily 11. History malignant neoplasm of bilateral breast with bilateral mastectomies. No evidence for any recurrence 12. RTC in 3 months [email or web address] Not available 05/05/2023 19:45:42 08/16/2023 08/16/2023 1. Recent fall. No significant trauma. Patient advised to be extremely careful. 2. Allergic rhinitis. Prescribe montelukast 10 mg daily for 1 to 2 months trial. Stop her other allergy medication 3. Chronic insomnia. Refilled temazepam 30 mg nightly #90 with no refills. 4. Diabetic peripheral neuropathy. Refilled gabapentin 300 mg 3 times daily #270 with no refills. 5. Hypercholesterol emia. Continue simvastatin 10 mg daily with low-cholesterol diet. Check FLP in the future 6. Remote history of malignant neoplasm of breast. No evidence for recurrence 7. Obstructive sleep apnea. Continue on CPAP every night 8. Impaired fasting glycemia. Checking an A1c today and continue nateglinide 60 mg twice daily 9. RTC in 3-month 10. Amnesia. Refilled donepezil 5 mg daily [email or web address] Not available 08/17/2023 22:48:04 11/01/2023 11/01/2023 1. Essential hypertension. Blood pressure relatively low. Decrease lisinopril to 2.5 mg daily 2. Chronic insomnia. Refilled temazepam 30 mg nightly #90 with no refills dated November 14 3. Allergic rhinitis. Moderately improved. Continue montelukast 10 mg daily 4. Amnesia. Continue donepezil 5 mg daily 5. Diabetic peripheral neuropathy. Refilled gabapentin 300 mg 3 times daily #270 with no refills dated November 14 6. Type 2 diabetes mellitus. Check CMP and hemoglobin A1c today. Continue nateglinide 60 mg twice daily and low-carb diet 7. Remote history of breast cancer. She is current on her mammogram status. 8. Hypercholesterol emia. Continue simvastatin 10 mg daily and omega-3 fish oil daily. Check FLP in the future 9. RTC in 3 months. Should have high-dose flu shot next month [email or web address] Not available 11/01/2023 22:26:14 02/19/2024 02/19/2024 1. Blurred vision with possibly some early macular degeneration. Patient is given ophthalmology referral to Dr. Berumen or Dr. Hickman in the next 6 to 8 weeks. Continue her AREDS vitamins. 2. Type 2 diabetes mellitus. Check hemoglobin A1c today. Continue nateglinide 60 mg twice daily and low-carb diet 3. Essential hypertension. Blood pressure is averaging lower than necessary. Decrease lisinopril to 2.5 mg only on Mondays and Fridays. 4. Back peripheral neuropathy. Refilled gabapentin 300 mg 3 times daily #270 with no refills. 5. Excessive abdominal gas and bloating. Recommended Gas-X 3 times daily as needed 6. Obstructive sleep apnea. Review CPAP use with patient next visit 7. Chronic insomnia. Refilled temazepam 30 mg nightly #90 with no refills 8. Remote history of breast cancer. No evidence for any recurrence 9. Localized edema. Mild and stable now off of Lasix for the past 2 months. 10. RTC in 3 months for Medicare wellness visit [email or web address] Not available 02/22/2024 07:16:51 Plan of Treatment Reminders Order Date Submit Date Provider Last Modified By Organization Details Last Modified Time Details Appointments None recorded. Lab glycohemogl obin, total, blood 2023 024 [facility], [address] [place] [address], [id number], 4 18:49:45 microalbumi n/creatinin e, mass ratio, urine 2023 024 [facility], [address] [place] [address], [id number], 4 19:29:57 glycohemogl obin, total, blood 2023 024 [facility], [address] [place] [address], [id number], 4 20:21:58 CMP, serum or plasma 2023 024 [facility], [address] [place] [address], [id number], 4 20:23:46 hemoglobin A1C, fingerstick 2023 024 [facility] [place], [address] [place] [address] [address], [address], [place], [address], 4 14:44:20 glycohemogl obin, total, blood 2023 024 [facility], [address] [place] [address], [id number], 4 19:36:03 CMP, serum or plasma 2023 024 [facility], [address] [place] [address], [id number], 4 19:51:28 lipid panel, serum 2023 024 [facility], [address] [place] [address], [id number], 4 19:51:30 Referral ophthalmolo heber referral - next [address] hickman next 2 months 2023 024 [email or web address] 1 Theo Berumen, [address] [facility], [place], [address], 4 10:29:31 sleep medicine referral - hx of LOGAN 2022 023 [email or web address] 1 Nishi Leroy MD, [address], [place], [address], 3 10:49:20 cart driver referral 2022 023 NOHEMI Guallpa MD, [address] , [address] , [place], [address], 3 16:40:42 Procedures None recorded. Surgeries None recorded. Imaging None recorded. Medication Orders gabapentin 300 mg capsule 2023 024 [facility], [address] [place] [address], [id number], 4 10:46:45 temazepam 30 mg capsule 2023 024 [facility], [address] [place] [address], [id number], 4 10:46:43 gabapentin 300 mg capsule 2023 024 [facility], [address] [place] [address], [id number], 4 11:22:59 lisinopril 2.5 mg tablet 2023 024 [facility], [address] [place] [address], [id number], 5 10:36:18 temazepam 30 mg capsule 2023 024 [facility], [address] [place] [address], [id number], 4 11:22:58 gabapentin 300 mg capsule 2023 024 [facility], [address] [place] [address], [id number], 4 10:15:58 donepezil 5 mg tablet 2023 024 [facility], [address] [place] [address], [id number], 5 10:36:17 montelukast 10 mg tablet 2023 024 [facility], [address] [place] [address], [id number], 4 10:16:02 lisinopril 10 mg tablet 2023 024 [facility], [address] [place] [address], [id number], 4 10:56:39 nateglinide 60 mg tablet 2023 024 [facility], [address] [place] [address], [id number], 5 10:36:17 simvastatin 10 mg tablet 2023 024 [facility], [address] [place] [address], [id number], 5 10:36:16 temazepam 30 mg capsule 2023 024 [facility], [address] [place] [address], [id number], 4 10:15:59 furosemide 20 mg tablet 2023 024 [facility], [address] [place] [address], [id number], 5 11:21:21 gabapentin 300 mg capsule 2023 024 [facility], [address] [place] [address], [id number], 4 10:40:13 donepezil 5 mg tablet 2023 024 [facility], [address] [place] [address], [id number], 4 10:46:42 nateglinide 60 mg tablet 2023 024 [facility], [address] [place] [address], [id number], 4 10:46:42 lisinopril 10 mg tablet 2023 024 9 [facility], [address] [place] [address], [id number], 4 22:24:08 simvastatin 10 mg tablet 2023 024 S[facility], [address] [place] [address], [id number], 4 10:46:45 temazepam 30 mg capsule 2023 024 [facility], [address] [place] [address], [id number], 4 10:40:17 furosemide 20 mg tablet 2023 024 [facility], [address] [place] [address], [id number], 5 15:42:13 furosemide 20 mg tablet 2022 023 [email or web address] 9 [facility], [address] [place] [address], [id number], 4 14:21:59 Patient TargetsNo targets recorded. Patient Instructions Encounter Date Encounter Id Patient Instructions Last Modified By Organization Details Last Modified Time 05/05/2023 [id number] advance care planning: care instructions [email or web address] Not available 05/05/2023 15:39:29 Reason for Referral Sleep Medicine Referral for Obstructive sleep apnea syndrome hx of LOGAN Referring Physician: Mikey Villanueva, Internal Medicine, Encounter Date: 12/12/2022 Cavalry Officer Referral for Jace ateral tinnitus Referring Physician: Mikey Villanueva, Internal Medicine, Encounter Date: 12/12/2022 Department Clerk Referral for Blurring of visual image next [address] hickman next 2 months Referring Physician: Mikey Villanueva, Internal Medicine, Encounter Date: 02/19/2024 Results Created Date Observation Date Name Description Value Unit Range Abnormal Flag Note LastModifiedBy Organization Detail LastModifiedTime 05/05/19 24 05/05/2023 GLYCO HEMOG LOBIN A1C glyco HGB A1C 6.2 % 0.0-5. 6 high Not Available [facility] [address] [place] [address], [id number], 05/05/2023 19:36:03 05/05/19 24 05/05/2023 GLYCO HEMOG LOBIN A1C estimated avg. glucose 131 mg/dL _(anahy c) normal A1c value s betwe en 5.7% to 6.4% indic ate predi abete s. Resul ts 6.5% or great er is diagn ostic of diabe adrienne. Ameri can Diabe adrienne Assoc iatio n (diab etes. org) Not Available [facility] [address] [place] [address], [id number], 05/05/2023 19:36:03 05/05/19 24 05/05/2023 COMP. METAB OLIC PANEL glucose 95 mg/dL 74-100 normal Not Available [facility] [address] [place] [address], [address], 05/05/2023 19:51:28 05/05/19 24 05/05/2023 COMP. METAB OLIC PANEL blood urea nitrogen 20 mg/dL 6-20 normal Not Available [facility] [address] [place] [address], [id number], 05/05/2023 19:51:28 05/05/19 24 05/05/2023 COMP. METAB OLIC PANEL creatinine 0.86 mg/dL 0.50-0 .95 normal Not Available [facility] [address] [place] [address], [id number], 05/05/2023 19:51:28 05/05/19 24 05/05/2023 COMP. METAB OLIC PANEL BUN/creatini ne ratio 23 (calc ) 10-20 high Not Available [facility] [address] [place] [address], [id number], 05/05/2023 19:51:28 05/05/19 24 05/05/2023 COMP. METAB OLIC PANEL sodium 138 mmol/ L 136-14 5 normal Not Available [facility] [address] [place] [address], [id number], 05/05/2023 19:51:28 05/05/19 24 05/05/2023 COMP. METAB OLIC PANEL potassium 4.6 mmol/ L 3.4-5. 0 normal Not Available [facility] [address] [place] [address], [id number], 05/05/2023 19:51:28 05/05/19 24 05/05/2023 COMP. METAB OLIC PANEL chloride 102 mmol/ L 98-107 normal Not Available [facility] [address] [place] [address], [address], 05/05/2023 19:51:28 05/05/19 24 05/05/2023 COMP. METAB OLIC PANEL carbon dioxide 25 mmol/ L 22-31 normal Not Available [facility] [address] [place] [address], [address], 05/05/2023 19:51:28 05/05/19 24 05/05/2023 COMP. METAB OLIC PANEL anion gap 11 (calc ) 7-25 normal Not Available [facility] [address] [place] [address], [address], 05/05/2023 19:51:28 05/05/19 24 05/05/2023 COMP. METAB OLIC PANEL calcium 9.6 mg/dL 8.6-10 .2 normal Not Available [facility] [address] [place] [address], [address], 05/05/2023 19:51:28 05/05/19 24 05/05/2023 COMP. METAB OLIC PANEL total protein 7.5 g/dL 6.4-8. 3 normal Not Available [facility] [address] [place] [address], [address], 05/05/2023 19:51:28 05/05/19 24 05/05/2023 COMP. METAB OLIC PANEL albumin 4.0 g/dL 3.5-5. 2 normal Not Available [facility] [address] [place] [address], [address], 05/05/2023 19:51:28 05/05/19 24 05/05/2023 COMP. METAB OLIC PANEL globulin 3.5 1.5-4. 5 normal Not Available [facility] [address] [place] [address], [address], 05/05/2023 19:51:28 05/05/19 24 05/05/2023 COMP. METAB OLIC PANEL albumin/glob ulin ratio 1.1 (calc ) 1.1-2. 5 normal Not Available [facility] [address] [place] [address], [address], 05/05/2023 19:51:28 05/05/19 24 05/05/2023 COMP. METAB OLIC PANEL bilirubin, total 0.3 mg/dL 0.1-1. 2 normal Not Available [facility] [address] [place] [address], [address], 05/05/2023 19:51:28 05/05/19 24 05/05/2023 COMP. METAB OLIC PANEL alkaline phosphatase 99 U/L 30-121 normal Not Available [facility] [address] [place], [address], 05/05/2023 19:51:28 05/05/19 24 05/05/2023 COMP. METAB OLIC PANEL AST 23 U/L 0-32 normal Not Available [facility] [address] [place], [address], 05/05/2023 19:51:28 05/05/19 24 05/05/2023 COMP. METAB OLIC PANEL ALT 28 U/L 0-33 normal Not Available [facility] [address] [place], [address], 05/05/2023 19:51:28 05/05/19 24 05/05/2023 COMP. METAB OLIC PANEL GFR 69 >= 60 normal NOT E New calcu latio n for GFR (CKD- EPI 2020) is formu lated witho ut race adjus tment facto rs at the recom menda tion of the [employer] Maldon[employer] y Found ation and Ameri can Socie ty of Nephr ology . This calcu latio n has not been valid ated in pregn ant women . For pedia ceci mejiae nts refer to https ://lauri man.oh yu/tyrone dunne s/EVELYNO QI/gf r_cal culat orPed Not Available [facility] [address] [place], [address], 05/05/2023 19:51:28 05/05/19 24 05/05/2023 LIPID PROFI LE HDL cholesterol 65 mg/dL 50-242 normal Not Available [facility] [address] [place], [address], 05/05/2023 19:51:29 05/05/19 24 05/05/2023 LIPID PROFI LE triglyceride s 100 mg/dL 0-149 normal TRIGL YCERI DE RANGE S STACY L: < 150 BORDE RLINE HIGH: 150 - 199 HIGH: 200 - 499 VERY HIGH: > OR = 500 Not Available [facility] [address] [place] [address], [address], 05/05/2023 19:51:29 05/05/19 24 05/05/2023 LIPID PROFI LE cholesterol 167 mg/dL 0-199 normal SHAINA STERO L (TOTA L) RANGE S ALEXEI ABLE: < 200 BORDE RLINE : 200 - 239 HIGHE R RISK: > 239 Not Available [facility] [address] [place] [address], [address], 05/05/2023 19:51:29 05/05/19 24 05/05/2023 LIPID PROFI LE LDL cholesterol 82 mg/dL _(anahy c) 0-99 normal LDL SHAINA STERO L RANGE S OPTIM AL: < 100 NEAR/ ABOVE OPTIM AL: 100 - 129 BORDE RLINE HIGH: 130 - 159 HIGH: 160 - 189 VERY HIGH: > OR = 190 Not Available [facility] [address] [place] [address], [address], 05/05/2023 19:51:29 08/17/19 24 08/17/2023 hemog lobin A1C, finge rstic k hemoglobin A1C % 5.7 % 4.0 - 5.6 Not Available [facility] [address], [place], [address], 08/16/2023 14:24:21 11/01/19 24 11/01/2023 GLYCO HEMOG LOBIN A1C glyco HGB A1C 6.1 % 0.0-5. 6 high Not Available [facility] [address] [place] [address], [address], 11/01/2023 20:21:58 11/01/19 24 11/01/2023 GLYCO HEMOG LOBIN A1C estimated avg. glucose 128 mg/dL _(anahy c) normal A1c value s betwe en 5.7% to 6.4% indic ate predi abete s. Resul ts 6.5% or great er is diagn ostic of diabe adrienne. Ameri can Diabe adrienne Assoc iatio n (diab etes. org) Not Available [facility] [address] [place] [address], [address], 11/01/2023 20:21:58 11/01/19 24 11/01/2023 COMP. METAB OLIC PANEL glucose 100 mg/dL 74-100 normal Not Available [facility] [address] [place] [address], [address], 11/01/2023 20:23:46 11/01/19 24 11/01/2023 COMP. METAB OLIC PANEL blood urea nitrogen 16 mg/dL 6-20 normal Not Available [facility] [address] [place] [address], [address], 11/01/2023 20:23:46 11/01/19 24 11/01/2023 COMP. METAB OLIC PANEL creatinine 0.87 mg/dL 0.50-0 .95 normal Not Available [facility] [address] [place] [address], [address], 11/01/2023 20:23:46 11/01/19 24 11/01/2023 COMP. METAB OLIC PANEL BUN/creatini ne ratio 18 (calc ) 10-20 normal Not Available [facility] [address] [place] [address], [address], 11/01/2023 20:23:46 11/01/19 24 11/01/2023 COMP. METAB OLIC PANEL sodium 139 mmol/ L 136-14 5 normal Not Available [facility] [address] [place] [address], [address], 11/01/2023 20:23:46 11/01/19 24 11/01/2023 COMP. METAB OLIC PANEL potassium 4.5 mmol/ L 3.4-5. 0 normal Not Available [facility] [address] [place] [address], [address], 11/01/2023 20:23:46 11/01/19 24 11/01/2023 COMP. METAB OLIC PANEL chloride 103 mmol/ L 98-107 normal Not Available [facility] [address] [place] [address], [address], 11/01/2023 20:23:46 11/01/19 24 11/01/2023 COMP. METAB OLIC PANEL carbon dioxide 25 mmol/ L 22-31 normal Not Available [facility] [address] [place] [address], [address], 11/01/2023 20:23:46 11/01/19 24 11/01/2023 COMP. METAB OLIC PANEL anion gap 11 (calc ) 7-25 normal Not Available [facility] [address] [place] [address], [address], 11/01/2023 20:23:46 11/01/19 24 11/01/2023 COMP. METAB OLIC PANEL calcium 9.3 mg/dL 8.6-10 .2 normal Not Available [facility] [address] [place] [address], [address], 11/01/2023 20:23:46 11/01/19 24 11/01/2023 COMP. METAB OLIC PANEL total protein 7.1 g/dL 6.4-8. 3 normal Not Available [facility] [address] [place] [address], [address], 11/01/2023 20:23:46 11/01/19 24 11/01/2023 COMP. METAB OLIC PANEL albumin 3.9 g/dL 3.5-5. 2 normal Not Available [facility] [address] [place] [address], [address], 11/01/2023 20:23:46 11/01/19 24 11/01/2023 COMP. METAB OLIC PANEL globulin 3.2 1.5-4. 5 normal Not Available [facility] [address] [place] [address], [address], 11/01/2023 20:23:46 11/01/19 24 11/01/2023 COMP. METAB OLIC PANEL albumin/glob ulin ratio 1.2 (calc ) 1.1-2. 5 normal Not Available [facility] [address] [place] [address], [address], 11/01/2023 20:23:46 11/01/19 24 11/01/2023 COMP. METAB OLIC PANEL bilirubin, total 0.4 mg/dL 0.1-1. 2 normal Not Available [facility] [address] [place] [address], [address], 11/01/2023 20:23:46 11/01/19 24 11/01/2023 COMP. METAB OLIC PANEL alkaline phosphatase 79 U/L 30-121 normal Not Available [facility] [address] [place] [address], [address], 11/01/2023 20:23:46 11/01/19 24 11/01/2023 COMP. METAB OLIC PANEL AST 27 U/L 0-32 normal Not Available [facility] [address] [place] [address], [address], 11/01/2023 20:23:46 11/01/19 24 11/01/2023 COMP. METAB OLIC PANEL ALT 29 U/L 0-33 normal Not Available [facility] [address] [place] [address], [address], 11/01/2023 20:23:46 11/01/19 24 11/01/2023 COMP. METAB OLIC PANEL GFR 67 >= 60 normal NOT E New calcu latio n for GFR (CKD- EPI 2020) is formu lated witho ut race adjus tment facto rs at the recom menda tion of the [employer]was[employer] Maldonado y Adriane [employer]z ty of Nephr ology . This calcu latio n has not been valid ated in pregn ant women . For pedia ceci mejiae nts refer to https ://ww w.kid donovan.o rg/pr ofess ional s/KDO QI/gf r_cal culat orPed Not Available [facility] [address] [place] [address], [address], 11/01/2023 20:23:46 02/19/20 24 02/19/2024 GLYCO HEMOG LOBIN A1C glyco HGB A1C 6.1 % 0.0-5. 6 high Not Available [facility] [address] [place], [address], 02/19/2024 18:49:45 02/19/20 24 02/19/2024 GLYCO HEMOG LOBIN A1C estimated avg. glucose 128 mg/dL _(anahy c) normal A1c value s betwe en 5.7% to 6.4% indic ate predi abete s. Resul ts 6.5% or great er is diagn ostic of diabe adrienne. Ameri can Diabe adrienne Assoc iatio n (diab etes. org) Not Available [facility] [address] [place] [address], [address], 02/19/2024 18:49:45 02/19/20 24 02/19/2024 MICRO ALBUM IN/CR EAT RATIO microalbumin , random <12 mg/L 0-19 normal Not Available [facility] [address] [place], [address], 02/19/2024 19:29:57 02/19/20 24 02/19/2024 MICRO ALBUM IN/CR EAT RATIO creatinine,u r,random 69 mg/dL normal NO STACY L RANGE ESTAB LISHE D FOR RANDO M URINE . Not Available [facility] [employer] [place], [address], 02/19/2024 19:29:57 02/19/20 24 02/19/2024 MICRO ALBUM IN/CR EAT RATIO MA/creatinin e ratio see below mcg/m g_cre at 0-29 normal Unabl e to calcu late micro album in/cr eatin ine ratio . Not Available [facility] [address] [facility], [place], [address], 02/19/2024 19:29:57 12/13/1911/08/[address]it or place ment (PROC ) No observ ation record ed. [facility] [address] [facility], [place], [address], 12/12/2022 15:50:25 12/14/19 23 10/19/2015 biops y, breas t (PROC ) No observ ation record ed. BARCODE Not Available 2022 22:41:13 12/14/1903/28/2022 colon oscop y proce dure (PROC ) No observ ation record ed. BARCODE Not Available 2022 22:41:13 12/14/19 23 06/13/2022 PET-C T, whole body scan No observ ation record ed. BARCODE Not Available 2022 22:41:13 12/14/1910/03/2022 DEXA No observ ation record ed. BARCODE Not Available 2022 22:41:13 04/09/1903/11/2024 eye exam* No observ ation record ed. BARCODE Not Available 2024 13:13:08 Result Notes None recorded. 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 80970637 Active 2015 From [employer];Prov ider: Dawson Masterson tatus: Active Not Available [facility] 3 21:40:21 Primary malignant neoplasm of female breast 76102133 Active 2015 From [employer];Prov ider: Lisa Rai tat: Active Not Available [facility] 3 21:40:21 Body mass index 30+ - obesity 638060118 Active 2017 Not Available [facility] 3 21:40:21 Morbid obesity 774372896 Active 2022 Not Available [facility] 3 21:40:21 Hyperchol esterolem ia 19505260 Active 2022 Not Available [facility] 3 21:40:20 Hyperglyc emia due to type 2 diabetes mellitus 31054969525 9109 Active 2022 Not Available [facility] 3 21:40:21 Obstructi ve sleep apnea syndrome 33540465 Active 2022 Not Available [facility] 21:40:21 Syncope 885917934 Active 2022 Not Available [facility] 3 21:40:21 Localized edema 655994380 Active 2022 Not Available [facility] 3 21:40:21 Bilateral tinnitus 83972210000 02 Active 2022 Not Available [facility] 21:40:21 Type 2 diabetes mellitus 17707843 Active 2023 MIKEY VILLANUEVA MD [address] [place] [address], [phone] , [facility] 4 19:45:42 History of malignant neoplasm of breast 698221825 Active 2023 MIKEY VILLANUEVA MD [address] [place] [address], [phone] , [facility] 4 19:45:45 Allergic rhinitis 33652466 Active 2023 MIKEY VILLANUEVA MD [address] [place] [address], [phone] , [facility] 4 19:45:50 Chronic insomnia 740511529 Active 2023 MIKEY VILLANUEVA MD [address] [place] [address], [phone] , [facility] 4 19:45:55 Adult health examinati on Active 2023 MIKEY VILLANUEVA MD [address] [place] [address], [phone] , [facility] 4 19:46:00 Amnesia 06029077 Active 2023 MIKEY VILLANUEVA MD [address] [place] [address], [phone] [place] [address] 4 19:46:03 Idiopathi c periphera l neuropath y 63742604 Active 2023 MIKEY VILLANUEVA MD [address] [place] [address], [phone] [place] [address] 4 19:46:04 History of syncope 87488500735 9109 Active 2023 MIKEY VILLANUEVA MD [address] [place] [address] [phone] [place] [address] 4 22:48:04 Diabetic periphera l neuropath y 682575363 Active 2023 MIKEY VILLANUEVA MD [address] [place] [address] 4 22:48:11 Essential hypertens ion 65448045 Active 2023 MIKEY VILLANUEVA MD [address] [place] [address] 4 22:26:15 Blurring of visual image 943260461 Active 2023 MIKEY VILLANUEVA MD [address] [place] [address] 4 07:16:51 Problem Notes None recorded. Procedures Surgical History Date Name Laterality Status Provider Name and Address Organization Details Recorded Time 03/15/19 19 DXA Normal completed AGUSTIN ANNE MD [address] [place] [address] [phone] [place] [address] 03/15/2018 17:08:36 10/29/19 16 Bilateral mastectomy completed ELOY MASTERSON MD [address] [place] [address], [phone] [place] [address] 12/15/2016 14:18:19 10/29/19 16 General Surgery completed Maira Hess [facility] 11/14/2016 12:55:04 02/27/19 16 Orthopedic Surgery completed Isadora Greene [facility] 04/04/2016 13:10:35 02/27/19 15 Cataract Surgery completed Sarah Leo [facility] 04/16/2018 09:28:32 02/27/19 14 Orthopedic Surgery completed [facility] 04/04/2016 13:10:01 02/27/19 11 Orthopedic Surgery completed [facility] 04/04/2016 13:09:33 02/27/19 01 Hysterectomy/b ladder repair completed [facility] 04/04/2016 13:09:10 02/27/18 99 General Surgery completed [facility] 04/04/2016 13:08:41 Imaging Results None recorded. Procedure Notes None recorded. Medical Equipment None Reported. Allergies Allergen ID Allergen Name Allergen Category Reaction Reaction Severity Criticality Documentation Date Start Date Code Code System Note Provider Name and Address Organization Details Recorded Time 275910 Product containin g penicilli n (product) medicatio n respirato ry distress Not available Not available 01/21/20162015 88361 8001 SNOMED React ion: BREAT LUZ MARIA DIFFI CULTY ; Comme nt: Creat ed By: Robbie Porras ated Date: 9:08: 27 AM; Not Available [facility] 14:09:53 866152 Substance with sulfonami de structure and antibacte rial mechanism of action (substanc e) medicatio n respirato ry distress Not available Not available 01/21/20162015 87597 8003 SNOMED React ion: BREAT LUZ MARIA DIFFI CULTY ; Comme nt: Creat ed By: Robbie garciaCre ated Date: 9:08: 35 AM; Not Available [facility] 6 14:09:54 Medications Name Sig Start Date Stop Date Status Note LastModified by Organization Details LastModified Time metformin 500 mg tablet Take 1 tablet every day by oral route. 04/16 completed Not Available Not Available Not Available anastrozo le 1 mg tablet TAKE 1 TABLET DAILY 12/12 completed Not Available Not Available Not Available doxycycli ne hyclate 100 mg capsule TAKE 1 CAPSULE 2 TIMES EACH DAY FOR 10 DAYS 08/15 completed Not Available Not Available Not Available donepezil 5 mg tablet TAKE 1 TABLET 1 TIME EACH DAY IN THE MORNING active Not Available Not Available No t Available Multiple Vitamin capsule Daily 12/12 completed Duration : 30 days;Sathish quency: daily;Me dication Descript ion: multivit crews; Dosage:1 ; Route:or al; refills: 3; Quantity :100 capsule Not Available Not Available Not Available lisinopri l 20 mg tablet Take 1 tablet by oral route at bedtime. 05/04 completed Duration : 30 days;Sathish quency: hs;Medic ation Descript ion: lisinopr il; Dosage:1 ; Route:or al; refills: 5; Quantity :30 tablet Not Available Not Available Not Available simvastat in 10 mg tablet TAKE 1 TABLET 1 TIME EACH DAY active Not Available Not Available No t Available nateglini de 60 mg tablet TAKE 1 TABLET 2 TIMES EACH DAY active Not Available Not Available No t Available temazepam 30 mg capsule Take 1 capsule every day by oral route at bedtime for 90 days, for insomnia . 2023 active Not Available Not Available Not Avai lable Ashley 180 mg tablet Daily 12/12 completed Duration : 30 days;Sathish quency: daily;Me dication Descript ion: fexofena dine; Dosage:1 ; Route:or al; refills: 12; Quantity :30 tablet Not Available Not Available Not Available doxycycli ne monohydra te 100 mg capsule TAKE 1 CAPSULE 2 TIMES EACH DAY FOR 10 DAYS active Not Available Not Available No t Available neomycin- polymyxin -dexameth 3.5 mg/mL-10, 000 unit/mL-0 .1% eye drops PLACE 1 DROP INTO BOTH EYES EVERY 4 HOURS active Not Available Not Available No t Available lisinopri l 10 mg tablet Take 1 tablet every day by oral route for 90 days. 10/31 completed Not Available Not Available Not Available gabapenti n 300 mg capsule Take 1 capsule 3 times a day by oral route as directed for 90 days. 2023 active Not Available Not Available Not Avai lable monteluka st 10 mg tablet TAKE 1 TABLET 1 TIME EACH DAY IN THE MORNING FOR ALLERGIE S 2023 active Not Available Not Available Not Avai lable codeine 10 mg-guaife nesin 100 mg/5 mL oral liquid TAKE 5 ML (1 TEASPOON FUL) EVERY 6 HOURS NEEDED FOR COUGH 05/04 completed Not Available Not Available Not Available aspirin 81 mg tablet Daily 04/16 completed Duration : 30 days;Sathish quency: daily;Me dication Descript ion: aspirin; Dosage:1 ; Route:or al; refills: 0; Quantity :30 tablet Not Available Not Available Not Available furosemid e 20 mg tablet Take 1 tablet every other day by oral route for 90 days. 2023 active only prn if needed Not Available Not Available Not Available metoprolo l succinate ER 25 mg tablet,ex tended release 24 hr TAKE 1 TABLET 1 TIME EACH DAY 05/04 completed Not Available Not Available Not Available levofloxa shea 500 mg tablet TAKE 1 TABLET 1 TIME EACH DAY FOR 7 DAYS 05/04 completed Not Available Not Available Not Available Earle 7.5 mg-325 mg tablet Every four to six hours 04/04 completed Duration : 28 days;Sathish quency: q4-q6h;M edicatio n Descript ion: acetamin ophen-hy drocodon e; Dosage:1 -2; Route:or al; refills: 0; Quantity :30 tablet Not Available Not Available Not Available lisinopri l 2.5 mg tablet TAKE 1 TABLET erery monday and monday active Not Available Not Available Not Avai lable ipratropi um bromide 21 mcg (0.03 %) nasal spray SPRAY 2 TIMES IN EACH NOSTRIL 2 TIMES EACH DAY 05/04 completed Not Available Not Available Not Available chlorhexi dine gluconate 0.12 % mouthwash SWISH AND SPIT 15 ML 2 TIMES EACH DAY, IN THE MORNING AND IN THE EVENING AFTER BRUSHING 05/04 completed Not Available Not Available Not Available melatonin 12/12 completed Not Available Not Available Not Available anastrozo le 1 mg daily 03/30 completed Not Available Not Available Not Available simvastat in 12/12 completed Not Available Not Available Not Available [place]-3 Daily active Frequenc y: daily;Me dication Descript ion: omega-3 polyunsa turated fatty acids; Dosage:1 ; Route:or al; refills: 0 Not Available Not Available Not Available Vitamin B-Complex Daily 12/12 completed Frequenc y: daily;Me dication Descript ion: multivit crews; Dosage:1 ; Route:or al; refills: 0 Not Available Not Available Not Available Gavilyte- C 240 gram-22.7 2 gram-6.72 gram-5.84 gram oral solution MIX AND TAKE ACCORDIN G TO PACKAGE AND PRESCRIB ER INSTRUCT IONS. DRINK 8 OUNCES (1 CUP) EVERY 15 MINUTES DIRECTED BY PRESCRIB ER INSTRUCT IONS. 05/04 completed Not Available Not Available Not Available Procto-Me d HC 2.5 % topical cream perineal applicato r APPLY A THIN FILM TO THE AFFECTED AREA OF SKIN 1 TO 2 TIMES A DAY NEEDED FOR HEMORRHO IDS active Not Available Not Available No t Available BinaxNOW COVID-19 Ag Self Test kit TEST DIRECTED TODAY 10/31 completed Not Available Not Available Not Available Ozempic 0.25 mg or 0.5 mg (2 mg/3 mL) subcutane ous pen injector INJECT 0.25MG ONCE A WEEK INTO THE SKIN 05/04 completed Not Available Not Available Not Available Vitals Date Recorded Body height Body mass index (BMI) Body weight Systolic And Diastolic Provider Name and Address Organization Details Last Updated DateTime 05/05/2023 170.18 cm 36 kg/m2 914571.25 g 130/78 mm[Hg] Dang Andrew [facility] 05/05/2023 14:32:36 Date Recorded Body height Body mass index (BMI) Body weight Heart rate Oxygen saturation Oxygen saturation in Arterial blood by Pulse oximetry Systolic And Diastolic Provider Name and Address Organization Details Last Updated DateTime 170.18 cm 36.7 kg/m2 239331. 31 g 81 /min 95 % 95 % 134/66 mm[Hg] Lisbeth Rodriguez [facility] 14:01:12 Date Recorded Body height Body mass index (BMI) Body weight Heart rate Systolic And Diastolic Provider Name and Address Organization Details Last Updated DateTime 11/01/2023 170.18 cm 36.5 kg/m2 755697.0 2 g 64 /min 110/70 mm[Hg] Sondra Evangelista [facility] 11/01/2023 10:00:39 Date Recorded Body height Body mass index (BMI) Body weight Oxygen saturation Oxygen saturation in Arterial blood by Pulse oximetry Heart rate Systolic And Diastolic Provider Name and Address Organization Details Last Updated DateTime 3 170.18 cm 36.6 kg/m2 792244. 61 g 97 % 97 % 74 /min 132/80 mm[Hg] [facility] 10:02:24 Date Recorded Body height Body mass index (BMI) Body weight Oxygen saturation Oxygen saturation in Arterial blood by Pulse oximetry Heart rate Systolic And Diastolic Provider Name and Address Organization Details Last Updated DateTime 4 170.18 cm 36.6 kg/m2 534821. 61 g 95 % 95 % 72 /min 120/72 mm[Hg] Dang [facility] 4 14:02:06 Social History Question Answer Notes LastModified by [employer] Details LastModified Time Tobacco Smoking Status [facility] 13:07:10 How Much Tobacco Do You Chew? None Information not available 04/16/2018 Marital Status Informatio n not available 04/16/2018 What Was The Date Of Your Most Recent Tobacco Screening? 08/16/2023 [email or web address] Information not available 08/16/2023 How Much Tobacco Do You Smoke? No Information not available 07/26/2018 Has Tobacco Cessation Counseling Been Provided? No Information not available 04/16/2018 How Many Years Have You Smoked Tobacco? 0 Information not available 07/26/2018 Sex: Unknown Functional Status Question Answer Note LastModified by [employer] Details LastModified Time What is your level of alcohol consumption? Occasional Information not available 04/16/2018 Mental Status None recorded. Family History Relationship Description Onset Age of this Age Resolved Age Notes LastModified by Organization Details LastModified Time Father Hypertensive disorder Not available 2018 09:26:33 Father Heart disease Not available 2018 09:26:44 Brother Hypertensive disorder Not available 2018 09:26:33 Brother Heart disease Not available 2018 09:26:44 Brother Obesity Not available 04/16/2018 09:26:56 Sister Obesity Not available 04/16/2018 09:26:56 Medical History Condition Response Diabetes Cancer Y Arthritis Y Hypertension Y Gynecological HistoryNo gynecological history recorded. Obstetrics History GPAL:G 0 P 0 0 0 0 Immunizations Vaccine Type Date Status Note Provider Nam e and Address Organization Details Recorded Time Influenza, adjuvanted, trivalent, PF 7 completed [facility]16[facility]2023 14:01:57 Influenza, MDCK, quadrivalent, PF 2 completed Lisbeth Michael [facility] 08/16/2023 14:01:57 COVID-19, mRNA, LNP-S, PF, 100 mcg/0.5mL dose or 50 mcg/0.25mL dose 1 completed Lisbeth Michael [facility] 08/16/2023 14:01:58 COVID-19, mRNA, LNP-S, PF, 100 mcg/0.5mL dose or 50 mcg/0.25mL dose 2 completed Lisbeth Michael [facility] 08/16/2023 14:01:58 COVID-19, mRNA, LNP-S, PF, 100 mcg/0.5mL dose or 50 mcg/0.25mL dose 1 completed Lisbeth Michael [facility] 08/16/2023 14:01:58 Tdap 9 completed [facility] 08/16/2023 14:01:58 Influenza, high-dose, trivalent, PF 0 completed Lisbeth Michael [facility] 08/16/2023 14:01:58 Influenza, high-dose, trivalent, PF 1 completed [facility] 08/16/2023 14:01:58 Influenza, high-dose, trivalent, PF 8 completed [facility] 08/16/2023 14:01:58 pneumococcal, unspecified formulation 5 completed Not Available [facility] 02/13/2023 21:40:21 Influenza, high-dose, quadrivalent, PF 3 completed MIKEY VILLANUEVA MD [address] [place] [address], [phone], [facility] 12/13/2022 06:43:33 Past Encounters Encounter ID Performer Location Encounter Start Date Encounter Closed Date Diagnosis/Indication Diagnosis SNOMED-CT Code Diagnosis ICD10 Code Diagnosis Note [id number] ELOY MASTERSON MD HEM/[facility]C [facility] [address] [address] 03/17/2016 13:32:37 03/17/2016 15:01:08 Primary malignant neoplasm of female breast 92841480 C50.587 [id number] Kevyn [place]ICOLE [place] [address] 04/04/2016 12:28:27 04/04/2016 13:58:56 Primary malignant neoplasm of female breast 83875946 C50.919 Personal h istory of primary malignant neoplasm of breast 302196670 Z85.3 [id number] ELOY MASTERSON MD HEM/[facility]C [facility] [address],[place] [address] 06/16/2016 13:56:03 06/16/2016 15:08:59 Primary malignant neoplasm of female breast 25850601 C50.334 [id number] ELOY MASTERSON MD HEM/[facility]C [facility] [address],[place] [address] 09/15/2016 13:40:25 09/15/2016 14:34:54 Primary malignant neoplasm of female breast 41836012 C50.303 [id number] Kevyn NICOLE MD GENERAL SURGERY [address] 1 11/14/2016 12:49:28 11/14/2016 13:04:35 Personal history of primary malignant neoplasm of breast 133398756 Z85.3 [id number] ELOY MASTERSON MD HEM/[facility]C [facility] [address] [address] 6 12/15/2016 13:41:42 12/15/2016 14:35:57 Primary malignant neoplasm of female breast 88351781 C50.412 Body mass index 30+ - obesity 026172239 Z68.39 [id number] ELOY MASTERSON MD HEM/[facility]C [facility] [address],[place] [address] 6 03/30/2017 13:38:04 03/30/2017 14:45:08 Primary malignant neoplasm of female breast 12199963 C50.718 [id number] ELOY MASTERSON MD HEM/ONC [facility] [address],[place] [address] 6 06/29/2017 12:56:16 06/29/2017 14:16:44 Primary malignant neoplasm of female breast 80826701 C50.412 Body mass index 30+ - obesity 740669932 Z68.34 [id number] ELOY MASTERSON MD HEM/[facility]C [facility] [address] [address] 6 10/19/2017 13:23:14 10/19/2017 14:26:15 Primary malignant neoplasm of female breast 57868505 C50.998 [id number] ELOY MASTERSON MD HEM/[facility]C [facility] [address] [address] 01/25/2018 13:44:57 01/26/2018 15:17:15 Primary malignant neoplasm of female breast 28209728 C50.666 [id number] AGUSTIN ANNE MD B[facility] [address] [place] [address] 03/15/2018 14:00:35 03/15/2018 14:22:34 Menopausal syndrome 914868557 N95.8 [id number] DARIA CAMACHO MD NEUROLOGY [facility] [address] [place] [address] 04/16/2018 09:15:54 04/16/2018 11:54:46 Insomnia 610273583 G47.00 Sleep apnea 29072078 G47 .30 [id number] BREN FERNÁNDEZ MD ENT [address] [place] [address] 05/03/2018 13:15:38 05/03/2018 13:56:06 Obstructive sleep apnea syndrome 16621237 G47.33 Obesity 048325794 E66.9 Psychophys iologic insomnia 621422703 F51.04 On examina tion - macroglossia 746686140 K14.8 [id number] ELOY MASTERSON MD HEM/[facility]C [facility] [address] [address] [place] [address] 07/26/2018 13:25:12 07/26/2018 15:07:53 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 74472527 C50.865 [id number] ANTONIO ALFARO MD HEM/ONC SB CLOSED [address] [place] [address] 03/29/2019 14:21:20 04/09/2019 03:47:51 [id number] MIKEY VILLANUEVA MD PRIMARY CARE [address] [place] [address] 11/01/2022 15:44:37 11/01/2022 16:49:57 Syncope 900871772 R55 Type 2 anshu betes mellitus without complication 037146115 E11.9 [id number] MIKEY VILLANUEVA MD PRIMARY CARE [address] [place] [address] 12/12/2022 09:55:51 12/12/2022 11:01:56 Morbid obesity 951933872 E66.01 Hypercholesterolemia 136 78555 E78.00 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 6149387217 31374 E11.65 Obstructiv e sleep apnea syndrome 96724503 G47.33 Syncope 744325308 R55 Administra tion of influenza vaccine 40899563 Z23 Localized edema 51176123 4 R60.0 Bilateral tinnitus 18398 42676 102 H93.13 [id number] MIKEY VILLANUEVA MD PRIMARY CARE [address] [place] [address] 05/05/2023 13:52:47 05/05/2023 15:44:18 Type 2 diabetes mellitus 58232190 E11.9 History of malignant neoplasm of breast 370204018 Z85.3 Hypercholesterolemia 136 38772 E78.00 Obstructiv e sleep apnea syndrome 77931809 G47.33 Allergic rhinitis 121252 04 J30.9 Bilateral tinnitus 47326 41043 102 H93.13 Morbid obesity 805626518 E66.01 Chronic insomnia 2380165 04 F51.04 Localized edema 22941517 4 R60.0 Adult heal th examination 847344769 Z00.00 Amnesia 70719302 R41.3 Idiopathic peripheral neuropathy 16663619 G60.9 [id number] MIKEY VILLANUEVA MD PRIMARY CARE [address] [place] [address] 08/16/2023 13:38:47 08/16/2023 14:29:36 Allergic rhinitis 60669705 J30.9 Amnesia 51604054 R41.3 Chronic insomnia 4296378 04 F51.04 History of malignant neoplasm of breast 600806560 Z85.3 Hypercholesterolemia 136 70471 E78.00 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 6524681950 92722 E11.65 History of syncope 48562 58534 70035 Z86.79 Morbid obesity 970224426 E66.01 Obstructiv e sleep apnea syndrome 43947778 G47.33 Localized edema 18951175 4 R60.0 Diabetic p eripheral neuropathy 013490616 E11.40 Idiopathic peripheral neuropathy 71466835 G60.9 Type 2 anshu betes mellitus 85288228 E11.9 [id number] MIKEY VILLANUEVA MD PRIMARY CARE [address] [place] [address] 11/01/2023 09:53:28 11/01/2023 10:29:41 Allergic rhinitis 93216361 J30.9 Amnesia 53521506 R41.3 Bilateral tinnitus 84592 73468 102 H93.13 Chronic insomnia 8919623 04 F51.04 Diabetic p eripheral neuropathy 895080827 E11.40 History of malignant neoplasm of breast 709285374 Z85.3 History of syncope 82649 98126 91721 Z86.79 Hypercholesterolemia 136 53441 E78.00 Obstructiv e sleep apnea syndrome 78264449 G47.33 Type 2 anshu betes mellitus 73754669 E11.9 Essential hypertension 50440042 I10 [id number] MIKEY VILLANUEVA MD PRIMARY CARE [facility] [address] [place] [address] 02/19/2024 13:53:33 02/19/2024 14:43:31 Allergic rhinitis 00489739 J30.9 Amnesia 36129947 R41.3 Bilateral tinnitus 28327 17034 102 H93.13 Chronic insomnia 6163503 04 F51.04 Diabetic p eripheral neuropathy 125750929 E11.40 Essential hypertension 63293657 I10 History of malignant neoplasm of breast 818345036 Z85.3 Hypercholesterolemia 136 88872 E78.00 Localized edema 78235927 4 R60.0 Morbid obesity 647765779 E66.01 Obstructiv e sleep apnea syndrome 56566246 G47.33 Type 2 anshu betes mellitus 48676113 E11.9 Blurring o f visual image 052302626 H53.8 Health Concerns Section Related Observation LastModified by Organization Detai ls LastModified Time None Recorded Concern Status LastModified by Organization Details LastModified Time None Recorded Advance Directives Directive None Recorded Payers Insurance Date Sequence Insurance Name Policy Number Policy Ag Covered Member ID Ag Member ID Guarantor Name 02/19/2024 3 FOR LIFE ( - MEDICARE SUPPLEMENT) Becky Mccarthy [id number] Becky Mccarthy 02/19/2024 1 [place] Becky Mccarthy [id number] Becky Mccarthy 02/19/2024 2 FOR LIFE ( - MEDICARE SUPPLEMENT) Becky Mccarthy [id number] Becky Mccarthy 03/22/2024 1 [employer] (MEDICARE REPLACEMENT/ ADVANTAGE - PPO) [id number] Becky Mccarthy [id number] Becky Mccarthy 04/22/2024 2 FOR LIFE () Becky Mccarthy [id number] Becky Mccarthy 04/22/2024 2 FOR LIFE ( - MEDICARE SUPPLEMENT) Becky Mccarthy [id number] Becky Mccarthy 02/19/2024 4 [facility] - [employer] () Becky Mccarthy [id number] Becky Mccarthy 02/19/2024 2 [facility] () Becky Mccarthy [id number] Becky Mccarthy Notes Date Note Type Note Provider Name and Address Organization Details Recorded Time 12/12/2022 text/html Becky is a 77-yea r-old female who comes today for follow-up of multiple chronic conditions. She had a syncopal episode 6 weeks ago but none since then. She reports intermittent problems with her balance. No recent falls. She walks about 1 mile daily. She denies any palpitations or chest pain. She wore a Holter monitor November 01 for 48 hours. She had some frequent PACs and PVCs but no dangerous arrhythmias or symptoms associated with those PVCs. She continues to wear her BiPAP every night for over 10 years. She is concerned about some increased edema in both legs especially over the last 3 months although she has had some problems with intermittent edema for the last 1 or 2 years. She has been off Ashley for several months. She complains of bilateral tinnitus for the past 2 years MIKEY VILLANUEVA MD [address] [place] [address], [phone] 12/13/2022 06:54:11 05/05/2023 text/html Medicare Annual Wellness VisitReported bypatient.Diet and Nutrition:healthy diet Fracture Risk:no history of fractures; no recent explained fracture; no sudden unexplained fractures; no previous musculoskeletal injuries Physical Activity:exercises on a regular basis; recent increase in physical activity; good physical condition Current level of painNo pain: 0/10 Depression Risk:never feels sad, empty, or tearful; no loss of interest in activities; no significant changes in weight; no sleep disturbances or insomnia; no agitation; no loss of energy; no feelings of worthlessness or guilt; no thoughts of suicide; no history of depression; no history of mood disorders Orientation:no disorientation to time; no disorientation to date; no disorientation to place Concentration and Memory:memory lapses or loss; forget names and certain things Speech/Motor difficulties:no speech difficulties; no difficulty expressing formulated concepts; no difficulty with fine manipulative tasks; no difficulty writing/copying; no slowed reaction time; does not knock things over when trying to pick them up Hearing:no loss of hearing; last hearing test 12/2022 Vision:wear glasses has eye exam appoint on 05/10/2023 Activities of Daily Living:able to bathe with limited or no assistance; able to contol urination and bowels; able to dress with limited or no assistance; able to feed self with limited or no assistance; able to get out of chair or bed with limited or no assistance; able to groom with limited or no assistance; able to toilet with limited or no assistance; no urine leakage or bladder control issues Instrumental Activities of Daily Living:able to grocery shop with limited or no assistance; able to manage medications with limited or no assistance; able to manage money with limited or no assistance; able to prepare meals with limited or no assistance; able to use the phone with limited or no assistance;unable to do house work without assistance; has a maid to clean house Falls Risk Assessment:fall(s) in the past year 1; fall(s) since last visit1 Home Safety:no unsafe chalino hazzards; no unsafe stairs; no unsafe gas appliances; working smoke/CO detectors; wears protective head gear for biking/high velocity; use of seatbelts; practicing 'safer sex'; no vision or hearing loss while driving; no fire arms; has hand bars in the bathroom/shower; good lighting in the home Advance Care Planning (Living Will-POA etc)Would like to discuss with provider today Interval hospitalizations:Leland dickathryn changes:noOther physician visits:dr preciado 04/05/2023 / 04/19/2023 / 04/05/2023 04/19/2023Exercise level:moderate silver sneakers walkTobacco or alcohol use:noHave you had any recent chest pain or unusual dyspnea ?Filemon is a 78-year-old female who comes today for her annual Medicare wellness and follow-up of several chronic conditions. She has had 2 falls in the past 1 year. She has a cane that she uses every day and a rollator walker that she uses occasionally. She denies any depression. She denies any change in her memory and scored 5 out of 5 on the mini cog mental status exam today. She continues taking donepezil 5 mg daily with benefit. Her last eye exam was sometime last year. She has an eye appointment scheduled in 5 days with her eye doctor in [facility]. She had audiology evaluation 4 months ago. Does not use hearing aids. She is current on all of her vaccine recommendations. We discussed the RSV vaccine and she will consider getting it after talking to her pharmacist. She has had bilateral mastectomies in the past due to breast cancer. She had a normal DEXA scan 7 months ago. She had a colonoscopy 13 months ago. A1c was 6.2, 6 months ago. Her blood sugars have been checked at home on fasting morning readings recently have ranged between 96 and 122. She saw her protection manager Dr. Jorgito Preciado recently. She also saw Dr. moore her parish visitor not long ago. She also saw Dr. Leroy her neurologist and sleep medicine specialist to is managing her BiPAP for her obstructive sleep apnea. MIKEY VILLANUEVA MD [address] [place] [address], [phone], [facility] 05/05/2023 19:46:50 08/16/2023 text/html Interval hospitalizations: NoMedication changes: NoOther physician visits: Cardiology Dr. PreciadoExercise level: LightTobacco or alcohol use: NoHave you had any recent chest pain or unusual dyspnea ? Yes chest pain and she is seeing cardiology regarding the issues. She had a recent fall hitting her head on a metal tea pot.Becky is a 78-year-old female who fell 2 weeks ago hitting the right side of her forehead on a metal teapot. No loss of consciousness. No syncope. She had an echocardiogram and a nuclear stress test August 08 with results pending. She saw Dr. Jorgito Preciado about 1 month ago. She complains of some clear rhinorrhea with extra sneezing for several months despite taking her daily allergy medication. Some chronic postnasal drainage causing some cough. MIKEY VILLANUEVA MD [address] [place] [address], [phone], [facility] 08/17/2023 22:48:53 11/01/2023 text/html Becky is a 78-yea r-old female who comes today for follow-up multiple chronic conditions. No recent ER visit. She had 1 slight fall when she tripped recently and suffered a small abrasion on the right arm which has healed. She lowered her lisinopril dose to 5 mg daily about 2 weeks ago. She has some slight rhinorrhea but no coughing or choking now she has been on montelukast daily for 2-1/2 months. Rare sneezing. She is walking 1 or 2 miles each day. Her blood sugars are checked at home daily and recently have ranged between 97 and 120 MIKEY VILLANUEVA MD [address] [place] [address], [phone], [facility] 11/01/2023 22:26:41 02/19/2024 text/html Interval hospitalizations:Leland dickathryn changes:the same no changeOther physician visits:noExercise level:exercise twice a day walk 2 miles a dayTobacco or alcohol use:noHave you had any recent chest pain or unusual dyspnea ?Filemon is an 79-year-old female who comes today for follow-up of several chronic conditions. She complains of some mild blurred vision for the past 2 to 3 months since she got some new glasses. She had cataract surgery 10 years ago in [place]. Her last eye exam was perhaps 4 or 5 years ago at which time she was told she has some early macular degeneration. She has been taking AREDS vitamins daily for at least 1 or 2 years. She also complains of increasing gas and flatus for at least several weeks if not longer. No diarrhea or constipation. Her blood sugars checked at home most days and recently has ranged between 82 and 134. She denies any chest pain or dyspnea. Her diastolic blood pressure readings at home recently have ranged tween 43 and 67 and she is concerned that maybe too low. Her systolic readings have ranged between 95 and 134. MIKEY VILLANUEVA MD [address] [place] [address], [phone], [facility] 02/22/2024 07:17:10 OBGyn Episode No OBEpisode recorded.
--- OUTSIDE RECORDS SUMMARY | 2024-09-02 10:44 | XMS_ITS | Encounter Summary ---
Author Organization [employer] ([place], [place], [place], [place]) Address [address] [place] [address] Care Team Providers Care Motorcycle Subassembler Name Role Phone Unavailable Primary Care Provider Unavailabl e Encounter Details Date Type Department Care Team (Late st Contact Info) Description 11/12/2018 Transcribed Document [facility] Family Medicine [facility] [place] [address] ProviderLaura MD [address] [place] [address] Social History Tobacco Use Types Packs/Day Years Used Date Smoking Tobacco: Never Assessed Comments Unknown Sex and Gender Information Value Date Recorded Sex Assigned at Not on file Legal Sex Female 3:48 PM CDT Gender Identity Not on file Sexual Orientation Not on file documented as of this encounter Miscellaneous Notes * Cerner Conversion Note - Laura ProviderMD - 11/12/2018 5:05 PM CDT Nursing Discharge Summary Entered On: 11/12/2018 17:06 EDT Performed On: 11/12/2018 17:05 EDT by MADY COE RN Discharge Documentation Discharge Date/Time : 11/12/2018 17:30 EDT Patient Disposition, General : Discharge Discharge To : senior care Mode Of Departure, General Discharge : Private vehicle, Wheelchair Accompanied By, Discharge : Daughter IV Discontinued : Yes Prescriptions Given to Patient : No Discharge Instructions Reviewed With, Opportunity For Questions Given : Patient, Daughter Patient Education Completed : Yes Teaching Method : Demonstration, Explanation Teaching Evaluation : Returns demonstration, Verbalizes understanding MADY COE RN - 11/12/2018 17:05 EDT documented in this encounter Plan of Treatment Not on file documented as of this encounter Visit Diagnoses Not on filedocumented in this encounter
--- OUTSIDE RECORDS SUMMARY | 2024-09-02 10:44 | XMS_ITS | Encounter Summary ---
Author Organization [employer] ([place], [place], [place], [place]) Address [address] [place] [address] Care Team Providers Care Summer Analyst Name Role Phone Unavailable Primary Care Provider Unavailabl e Encounter Details Date Type Department Care Team (Late st Contact Info) Description 11/12/2018 Transcribed Document [facility] [place] [facility] [place] [address] ProviderLaura MD [address] [place] [address] Social History Tobacco Use Types Packs/Day Years Used Date Smoking Tobacco: Never Assessed Comments Unknown Sex and Gender Information Value Date Recorded Sex Assigned at Not on file Legal Sex Female 3:48 PM CDT Gender Identity Not on file Sexual Orientation Not on file documented as of this encounter Miscellaneous Notes * Cerner Conversion Note - Laura Gunn MD - 11/12/2018 5:06 PM CDT [facility] [place] [place] [address] KIKI JEAN :1945 Visit Time:11/12/2018 Your Visit Summary Your Care Team Admitting Physician - ELOY SALDANA MD-ANUPAM BAIRD MD Attending Physician - ANUPAM ROTH MD Referring Physician - ELOY SALDANA MD-ANUPAM BAIRD MD Your Diagnosis Abnormal result of other cardiovascular function study, Abnormal result of other cardiovascular function study Discharge Vitals Heart Rate (Monitored) 68 Respiratory Rate 19 Blood Pressure 136/89 What to do next Instructions From Your Care Team Diet after Discharge: Resume usual diet as tolerated, _, _ Fluid Restriction after Discharge: _ Activity after Discharge: _, Rest and relax today, No strenuous activity see post radial cardiac cath instruction sheet Lifting Restrictions: _see post radial cardiac cath instruction sheet Weight Bearing: _ Bedrest: _ Driving after Discharge: Do not drive for 24 hours May Return to Work/School: Showering/Bathing: _, _ Notify Provider of: Wound/Incision Care after Discharge: _, _ Medical Equipment for Home Use: Home Health Services: Community Services: Follow-Up Appointments Follow Up with [facility] PHILLIPS When Within 2 to 4 weeks Comments Follow-up as instructed Where: [address] [place] [id number] [facility] (1) Medications What How Much When Instructions Next Dose acetaminophen/ aspirin/ caffeine (Excedrin) 1 Tablet(s) Oral Every 6 Hours as needed for Headache anastrozole (anastrozole 1 mg oral tablet) Oral Every Day aspirin (aspirin 81 mg oral tablet) 1 Tablet(s) Oral Every Day cinnamon (Cinnamon 500 mg oral capsule) 2 Capsule(s) Oral Two Times A Day fexofenadine (Ashley) 180 Milligram(s) Oral Every Day gabapentin (gabapentin 300 mg oral capsule) 1 Capsule(s) Oral Once a day (at bedtime) lisinopril (lisinopril 20 mg oral tablet) 1 Tablet(s) Oral Every Day multivitamin 1 Tablet(s) Oral Every Day multivitamin (Vitamin B Complex oral tablet) 1 Tablet(s) Oral Every Day naproxen (naproxen sodium 220 mg oral capsule) 2 Capsule(s) Oral Every 12 hours as needed for as needed for pain Non Formulary (Tumeric) 1 Tablet(s) Oral Every Day 450/ 50 mg potassium chloride (Rock Potassium 99 oral tablet) 1 Tablet(s) Oral Every Day simvastatin (simvastatin 10 mg oral tablet) 1 Tablet(s) Oral Once a day (at bedtime) temazepam (Restoril 30 mg oral capsule) 1 Capsule(s) Oral At Bedtime as needed for for sleep Take your medications faithfully. Do NOT skip medication. Do NOT stop taking medications without the direction of a physician. Carry a list of your medications with you at all times, and take this medication list with you to your first follow up visit. Report any side effects. Avoid herbal remedies unless discussed with your physician. As part of your treatment plan, your physician may have prescribed a limited course of a controlled substance. This medication may be given to help people with moderate or severe pain or for other medical conditions, but there are risks involved with treatment. Common side effects may include nausea, constipation, drowsiness, sweating, itching, dry mouth, and rash. More serious side effects may include cognitive and motor impairment, like problems with thinking, concentrating, alertness, and movement (e.g. slowed reflexes), and driving and operating heavy machinery can be dangerous. It is important for you to talk to your physician if you have these side effects or questions. These controlled substances can produce physical dependence and be habit-forming if taken for an extended period of time, which means that the body has gotten used to them and may experience withdrawal symptoms if they are abruptly stopped. Withdrawal symptoms can include runny nose, sweating, goose bumps, diarrhea, abdominal cramping, rapid heartbeat, difficulty sleeping, and nervousness. Please dispose of unused and medications per your retail pharmacy guidance. Allergies penicillin (Shortness of breath, Hives) sulfa drugs (Shortness of breath) Immunizations This Visit No Immunizations Found Education Materials Moderate Conscious Sedation, Adult, Care After These [...] you are awake and alert. ??? Take tsbr-lyn-afczdhx and prescription medicines only as told by [...] 12/04/2013 Document Revised: 07/18/2016 Document Reviewed: 06/04/2016 [employer] Interactive Patient Education ?? 2019 [employer]. Radial Site Care Refer to this sheet [...] the radial site that usually fades within 1???2 weeks. ??? Blood collecting in the tissue (hematoma) that may be painful to the touch. It should usually decrease in size and tenderness within 1???2 weeks. Follow these instructions at home: ??? Take medicines only as directed by your health care provider. ??? You may shower 24???48 hours after the procedure or as directed [...] 03/18/2011 Document Revised: 07/21/2016 Document Reviewed: 09/01/2014 [employer] Interactive Patient Education ?? 2019 [employer] Transradial Angiogram Transradial angiogram is an [...] including vitamins, herbs, eye drops, creams, and xlzn-lgl-xkpzadq medicines. ??? Any problems you or family [...] 11/07/2012 Document Revised: 10/16/2016 Document Reviewed: 01/18/2016 [employer] Interactive Patient Education ?? 2019 [employer]. Emergency Awareness and Preventative Care STROKE is an EMERGENCY Every Minute Counts Act FAST and Check for these signs: FACE Does the face look uneven? ARM Does one arm drift down? SPEECH Does their speech sound strange? TIME Call at any sign of stroke Stroke Risk Factors Atrial Fibrillation (irregular heartbeat) Diabetes Family history of stroke Heart Disease Heavy alcohol use High Blood Pressure High Cholesterol Physical inactivity and obesity Smoking Cigarette Smoking The facts are clear, cigarette smoking will shorten your life. Smoking can cause many illnesses along the way. As a healthcare provider, we recommend that you stop smoking. Assistance with quitting is available by contacting 9-262-IUSWGreenlight BiosciencesNOW. This is a free resource providing counseling, support, and referral. Or you may contact your personal physician. allyDVM Suicide Prevention Lifeline: The National Suicide Prevention Lifeline is a national network of local crisis centers that provides free and confidential emotional support to people in suicidal crisis or emotional distress 24 hours a day, 7 days a week. Don't Wait! Stop a Heart Attack Before it Starts What is a heart attack? A heart attack is damage or to a part of the heart from severely decreased or lack of blood flow to the heart. Over time, arteries can become narrow from the buildup of fat and cholesterol, which is called plaque. The plaque can rupture causing a blood clot to form. When the blood clot forms, the artery can become severely narrowed or completely blocked, causing a heart attack. Heart attack is the leading cause of in the [place]. 85% of muscle damage occurs within the first 2 hours. Delay in the recognition of heart attack symptoms increases the chances of . Know the early symptoms of a heart attack: Nausea Feeling of fullness in chest Jaw Pain Pain that travels down one or both arms Fatigue/being tired Anxiety Back Pain Chest pressure, squeezing, or discomfort Shortness of breath Sweating, or a cold sweat Feeling of impending doom There are unusual signs of a heart attack, too! Women, the elderly, and diabetics may present with atypical symptoms: Fainting/dizziness Weakness Confusion Risk Factors for a Heart Attack Some heart disease risk factors, such as age and family history, cannot be changed. Others, like smoking and lack of exercise, can be changed. Smoking High Cholesterol High Blood Pressure Family History Obesity Age Gender (Males are at higher risk) Lack of Exercise Diabetes Diet Stress Excessive Alcohol Intake If you or someone you know is experiencing the signs and symptoms of a heart attack, DON???T DELAY. Call immediately and seek help. If someone collapses, perform CPR! Do not attempt to drive if you are having symptoms of heart attack. Hands-Only CPR Why Hands-Only CPR? Hands-Only CPR has been shown to be as effective as conventional CPR for cardiac arrests that occur outside of a hospital. Survival depends on immediately receiving CPR from someone nearby. How do you perform Hands-Only CPR? There are two easy steps: Call if you see a teen or adult collapse Push hard and fast in the center of the chest at a beat of 100 beats per minute. Save a life! 4 WAYS TO GET AHEAD OF SEPSIS SEPSIS is a MEDICAL EMERGENCY. Time matters! Infections put you and your family at risk for a life-threatening condition called sepsis. Sepsis is the body's extreme response to an infection. It is life-threatening, and without timely treatment, sepsis can rapidly lead to tissue damage, organ failure, and . Sepsis happens when an infection you already have-in your skin, lungs, urinary tract or somewhere else-triggers a chain reaction throughout your body. 1 PREVENT INFECTIONS Take good care of chronic conditions. Talk to your doctor about getting the recommended vaccines. 2 PRACTICE GOOD HYGIENE Wash your hands frequently. Keep cuts or open sores clean and covered until they are healed. 3 KNOW THE SYMPTOMS Confusion or disorientation Shortness of breath High heart rate Fever, shivering, or feeling very cold Extreme pain or discomfort Clammy or sweaty skin 4 ACT FAST Get medical care IMMEDIATELY if you suspect sepsis or if you have an infection that is not getting better or is getting worse. To learn more about sepsis and how to prevent infections, visit www.cdc.gov/sepsis. Test Results Laboratory or Other Results This Visit (last charted value for your 11/12/2018 visit) Hematology 11/12/18 11:45:00 Platelet Count: 240 K/uL -- Normal range between ( 163 and 369 ) Vascular Ultrasound 11/12/18 14:36:09 VL Vascular Access: VL Vascular Access Patient Name:KIKI JEAN I have received and understand this information and was given the opportunity to ask questions. Patient/Communications Equipment Installer Name: Patient/Communications Equipment Installer Signature: Relationship to Patient: Clinician/Hospital Communications Equipment Installer Signature: Date: documented in this encounter Plan of Treatment Not on file documented as of this encounter Visit Diagnoses Not on filedocumented in this encounter
--- OUTSIDE RECORDS SUMMARY | 2024-09-02 10:44 | XMS_ITS | Patient Health Record ---
Author Organization [facility] Address [address] [place] [address] [place] [address] Care Team Providers Care Drop Hammer Operator Helper Name Role Phone Theo Sutherland Primary Care Provider Migration, Provider Unavailable Unavailable Allergies Allergen (clinical drug ingredient) Drug/Non Drug Allergy documented on EMR Reaction Allergy Type Onset Date Status mafenide Sulfamylon hives Drug Allergy Active Penicillin hives Drug Allergy Active Reason For Referral No Information Medications Medication SIG (Take, Route, Frequency, Duration) Notes Start Date End Date Status Anusol-HC 2.5 % 1 chris rectally 2 govind es a day; Duration: 14 day(s) 11/16/2020 Active Doxycycline Monohydrate 100 MG 1 tab(s) orally [...] day (at bedtime); Duration: 90 days Active Lisinopril 10 MG 1 tab(s) orally once a day Active Simvastatin 10 MG 1 tab(s) orally once a day (at bedtime); Duration: 90 days Active Immunizations Vaccine Route Administration Date Status Comme nts Fluzone High Dose IM Intramuscular 11/11/2019 Administered Fluzone High Dose IM Intramuscular 11/16/2020 Administered Social History Tobacco Use: Social History Observation Description Date Details (start date - stop date) Never Smoker NA - NA Smoking: Question Answer Notes Are you a: nonsmoker Problems Problem Type SNOMED Code ICD Code Onset Dates Problem Status W/U Status Risk Notes Problem Chronic rhinitis (99507338) Chronic rhinitis (J31.0) Active confirmed Problem Neuropathy (602939725) Neuropathy (G62.9) Active confirmed Problem Essential hypertensi on (86700310) Essential hypertension (I10) Active confirmed Problem Allergic rhinitis (27376456) Chronic allergic rhinitis (J30.9) Active confirmed Problem Sleep pattern disturbance (91683166) Sleep pattern disturbance (G47.20) Active confirmed Problem Osteoarthritis of kn ee (149263187) Primary osteoarthritis of right knee (M17.11) Active confirmed Problem Personal history of primary malignant neoplasm of breast (310532093) History of breast cancer (Z85.3) Active confirmed Problem Obesity (736123266) Obesity (BMI 35.0-39.9 without comorbidity) (E66.9) Active confirmed Problem hypercholesterolemia (disorder) (36965194) Hypercholesteremia (E78.00) Active confirmed Encounters Encounter Location Date Provider Diagnosis [facility] [address] [facility] [address] [place] [address] 06/01/2024 Provider Migration Acute non-recurrent pansinusitis J01.40 Assessments Encounter Date Diagnosis (ICD Code) Assessment Notes Treatment Notes Treatment Clinical Notes Section Notes 06/01/2024 Acute non-recurrent pansinusitis (ICD-10 - J01.40) Plan Of Treatment Pending Test Test Name Order Date C-CMP 03/30/2020 Insurance Providers Payer Name Payer Address Payer Phone Subscriber Number Group Number Insured Name Patient Relationship to Insured Coverage Start Date Coverage End Date [employer] MEDICARE [address] [address] [place] [address] [id number] Becky Mccarthy Self - patient is the insured [facility] CLAIMS [address] [place] [address] [id number] Becky Mccarthy Self - patient is the insured Medications Administered Medication Instructions Date of Administration Dosage Notes Dexamethasone 4mg Injection 05/27/2021 4 mg Medical (General) History Surgical History Surgery Date(Month/Year) L mastectomy 1998 Hysterectomy 2000 R ankle 2010 Cataract sugery 2014 R knee replacement 2013 R masectomy 2016 R little finger 2016 cardiac cath 10/2018 left knee replacement 04/2020 Hospitalization History Reason Date(Month/Year) above
--- OUTSIDE RECORDS SUMMARY | 2024-09-02 10:44 | XMS_ITS | Encounter Summary ---
Author Organization [facility] ([place], [place], [place], [place]) Address [address] [place] [address] Care Team Providers Care Fitness Instructor Name Role Phone Unavailable Primary Care Provider Unavailabl e Encounter Details Date Type Department Care Team (Late st Contact Info) Description 11/12/2018 Transcribed Document [facility] Cardiology [address] [place] [address] Blair Littlejohn MD [address] [facility] [address] [place] [id number] Social History Tobacco Use Types Packs/Day Years Used Date Smoking Tobacco: Never Assessed Comments Unknown Sex and Gender Information Value Date Recorded Sex Assigned at Not on file Legal Sex Female 3:48 PM CDT Gender Identity Not on file Sexual Orientation Not on file documented as of this encounter Miscellaneous Notes * Cerner Conversion Note - Blair Littlejohn MD - 11/12/2018 12:00 PM EDT Patient: KIKI JEAN Age: 73 years Sex: Female : 1945 Associated Diagnoses: None Author: BLAIR LITTLEJOHN MD-CAR Basic Information PCP: Dr [facility] Bag [employer] Worker: Rhonda Fernández Chief Complaint Increased dyspnea with exertion and fatigue. History of Present Illness Mrs. Jean is a 73 y/o patient with a PMH significant for LOGAN, HTN, HLD, and Breast CA. Patient was seen in office by Dr. Fernández for follow. Patient reported increased dyspnea with activities and increased fatigue. She underwent a Lexiscan MPI that was abnormal suggesting moderated tracy-apical ischemia, EF 68%. Patient has been scheduled for [facility] with possible intervention. Review of Systems Constitutional: Negative except as documented in history of present illness. Eye: Negative except as documented in history of present illness. Ear/Nose/Mouth/Throat: Negative except as documented in history of present illness. Respiratory: Negative except as documented in history of present illness. Cardiovascular: Negative except as documented in history of present illness. Gastrointestinal: Negative except as documented in history of present illness. Genitourinary: Negative except as documented in history of present illness. Hematology/Lymphatics: Negative except as documented in history of present illness. Endocrine: Negative except as documented in history of present illness. Immunologic: Negative except as documented in history of present illness. Musculoskeletal: Negative except as documented in history of present illness. Integumentary: Negative except as documented in history of present illness. Neurologic: Negative except as documented in history of present illness. Psychiatric: Negative except as documented in history of present illness. Health Status Allergies (2) Active Reaction penicillin Shortness of breath sulfa drugs Shortness of breath Home Medications (10) Active Ashley 180 mg, Oral, Daily aspirin 81 mg oral tablet 81 mg = 1 Tab, Oral, Daily Excedrin 1 Tab, PRN, Oral, Q6H lisinopril 20 mg oral tablet 20 mg = 1 Tab, Oral, Daily multivitamin 1 Tab, Oral, Daily naproxen sodium 220 mg oral capsule 440 mg = 2 Cap, PRN, Oral, Q12H omega-3 polyunsaturated fatty acids oral capsule 1 Cap, Oral, Daily Restoril 30 mg oral capsule 30 mg = 1 Cap, PRN, Oral, At Bedtime Tumeric 1 Tab, Oral, Daily Vitamin B Complex oral tablet 1 Tab, Oral, Daily Allergies: Allergic Reactions (Selected) Severity Not Documented Penicillin- Hives and shortness of breath. Sulfa drugs- Shortness of breath., Allergies (2) Active Reaction penicillin Shortness of breath sulfa drugs Shortness of breath Current medications: (Selected) Inpatient Medications Ordered Brilinta: 180 mg, Oral, 1-Time Normal Saline Flush: 10 mL, IV Push, Q12H Normal Saline Flush: 10 mL, IV Push, See Comment, PRN: IV Use Sodium Chloride 0.9% intravenous solution 500 mL: Titrate, IntraVENous aspirin: 81 mg, Oral, Daily atorvastatin: 80 mg, Oral, PREOP Documented Medications Documented Ashley: 180 mg, Oral, Daily, 0 Refill(s) Cinnamon 500 mg oral capsule: 2 Cap, Oral, BID, 100 Cap, 0 Refill(s) Excedrin: 1 Tab, Oral, Q6H, PRN: Headache, 0 Refill(s) Rock Potassium 99 oral tablet: 1 Tab, Oral, Daily, 100 Tab, 0 Refill(s) Restoril 30 mg oral capsule: 1 Cap, Oral, At Bedtime, PRN: for sleep, 0 Refill(s) Tumeric: 1 Tab, Oral, Daily, 450/50 mg, 0 Refill(s) Vitamin B Complex oral tablet: 1 Tab, Oral, Daily, 0 Refill(s) anastrozole 1 mg oral tablet: Tab, Oral, Daily, 0 Refill(s) aspirin 81 mg oral tablet: 1 Tab, Oral, Daily, 90 Tab, 0 Refill(s) gabapentin 300 mg oral capsule: 1 Cap, Oral, Once a day (at bedtime), 30 Cap, 0 Refill(s) lisinopril 20 mg oral tablet: 1 Tab, Oral, Daily, 90 Tab, 0 Refill(s) multivitamin: 1 Tab, Oral, Daily, 0 Refill(s) naproxen sodium 220 mg oral capsule: 2 Cap, Oral, Q12H, PRN: as needed for pain, 0 Refill(s) simvastatin 10 mg oral tablet: 1 Tab, Oral, Once a day (at bedtime), 90 Tab, 0 Refill(s) Completed omega-3 polyunsaturated fatty acids oral capsule: 1 Cap, Oral, Daily, 100 Cap, 0 Refill(s), No qualifying data available Problem list: All Problems Cataract- removed / SNOMED CT [id number] / Confirmed Allergic rhinitis / SNOMED CT 868199933 / Confirmed High blood pressure / SNOMED CT 97469785 / Confirmed Sleep apnea / SNOMED CT 471753778 / Confirmed Hemorrhoids / SNOMED CT 289309047 / Confirmed Fibroids / SNOMED CT 571503747 / Confirmed Endometriosis / SNOMED CT 8887398599 / Confirmed Arthritis / SNOMED CT 9457815 / Confirmed Back pain / SNOMED CT 846426319 / Confirmed Osteoporosis / SNOMED CT 705223542 / Confirmed DDD (degenerative disc disease), lumbar / SNOMED CT 57458704 / Confirmed CA - Breast cancer- bilateral / SNOMED CT 091853787 / Confirmed Fatigue / SNOMED CT 948370103 / Confirmed Resolved: Breast cancer / SNOMED CT 490067891, Active Problems (12) Allergic rhinitis Arthritis Back pain CA - Breast cancer- bilateral Cataract- removed DDD (degenerative disc disease), lumbar Endometriosis Fibroids Hemorrhoids High blood pressure Osteoporosis Sleep apnea Histories No education data available. Social & Psychosocial Habits Alcohol 11/11/2015 Alcohol Use History, Social Habits Yes Date/Time of Last Drink 1 per month Alcohol Use Frequency Monthly Substance Abuse 11/11/2015 Recreational Drug Use History No Recreational Drug Use Last 12 Months No Tobacco 11/11/2015 Smoking Status Never smoker Past Medical History: Active HLD - Hyperlipidemia (453157264) HTN - Hypertension (0027263266) LOGAN - Obstructive sleep apnea (0831156019) Resolved Breast cancer (699774532): Resolved. Family History: No family history items have been selected or recorded., non contributory Procedure history: bilateral cataracts removed. colonoscopy with polypectomy. hysterectomy. left mastectomy. right ankle surgery. right mastectomy. right total knee. Social History Social & Psychosocial Habits Alcohol 11/11/2015 Alcohol Use History, Social Habits Yes Date/Time of Last Drink 1 per month Alcohol Use Frequency Monthly Substance Abuse 11/11/2015 Recreational Drug Use History No Recreational Drug Use Last 12 Months No Tobacco 11/11/2015 Smoking Status Never smoker . Physical Examination VS/Measurements No qualifying data available General: Alert and oriented. Eye: Pupils are equal, round and reactive to light. HENT: Normocephalic. Neck: Supple, Non-tender, No carotid bruit, No jugular venous distention. Respiratory: Lungs are clear to auscultation, Respirations are non-labored. Cardiovascular: Normal rate, Regular rhythm, No murmur, No gallop, Good pulses equal in all extremities. Gastrointestinal: Soft, Non-tender, Non-distended, Normal bowel sounds. Musculoskeletal: Normal range of motion. Integumentary: Warm, Dry, [place]. Neurologic: Alert, Oriented. Psychiatric: Cooperative. Review / Management No qualifying data available Results review: No qualifying data available. Impression and Plan IMPRESSION: * Dyspnea with exertion and fatigue abn Lexiscan stress test suggesting moderate tracy-apical ischemia EF68%. *LOGAN CPAP *HLD Statin therapy *HTN Controlled on BB and TITO PLAN; Cardiac cath with possible catheter based intervention. Risks, benefits and alternative therapy discussed. Patient is agreeable to proceed. Written and verbal consents obtained. documented in this encounter Plan of Treatment Not on file documented as of this encounter Visit Diagnoses Not on filedocumented in this encounter
== END 2024-08-29 23:59 | disposition home or self-care (01) ==
LOC: LAB.DROPOF 09-02 10:32
PROVIDERS: PCP Family Medicine; Visit Provider Family Medicine
DX: I47.10 Supraventricular tachycardia, unspecified (principal); E78.5 Hyperlipidemia, unspecified; Z11.59 Encounter for screening for other viral diseases
CPT/HCPCS: 80053; 80061; 83036; 84443; 85025; 86803; 87340; 87389

== ENCOUNTER → 2024-11-29 11:17 | Outpatient (CLI) | payer MEDICARE, OTHER, SELFPAY | LOC: SL 12-05 11:19 | PROVIDERS: PCP Family Medicine; Visit Provider Specialist | DX: G47.33 Obstructive sleep apnea (adult) (pediatric) (principal); G47.34 Idiopathic sleep related nonobstructive alveolar hypoventilation | CPT/HCPCS: 94762 ==